=== PATIENT | male | born 1970 | race Caucasian/White ===

== ENCOUNTER 2022-04-17 08:36 | Emergency (ER) | payer OTHER ==
[2022-04-17] MEDS ORDERED: Sodium Chloride 0.9% 1000 ML 1,000 ML IV STA ×2 (09:34→13:20)
[2022-04-17 09:38] LABS: Absolute Neutrophil Ct (ANC) 7.86 x10^3/uL (1.4-6.9); Basophil (Absolute #) 0.09 x10^3/uL (0-0.4); Eosinophil % 0.5 % (0.00-5.0); Eosinophil (Absolute #) 0.05 x10^3/uL (0-0.5); Hematocrit 35.8 % (42-50); Hemoglobin 12.2 g/dL (12.5-18.0); Lymphocyte (Absolute #) 0.89 x10^3/uL (1.0-4.6); Lymphocytes % 9.3 % (24.0-44.0); Mean Cell Volume 90.6 fL (78-100); Mean Corpuscular Hemoglobin 30.9 pg (26-32); Mean Corpuscular Hgb Concent. 34.1 g/dL (32-36); Mean Platelet Volume 8.1 fL (7.5-11.0); Monocyte (Absolute #) 0.65 x10^3/uL (0.0-1.3); Monocytes % 6.8 % (0.0-12.0); Platelet Count 431 x10^3/uL (150-450); Red Blood Count 3.95 x10^6/uL (4.1-5.6); Red Cell Distribution Width 13.4 % (11.5-14.0); White Blood Count 9.6 x10^3/uL (4.0-10.5)
--- NOTE | 2022-04-17 09:45 | XRAY ---
Indication: Fever. History bladder cancer. Comparison: October 29, 2021 Portable chest demonstrates new hazy right base air space disease without consolidation/large effusion. Remaining heart and left lung unremarkable. Bony thorax intact again with minimal degenerative changes, old bilateral rib fractures, and partially visualized lower cervical fusion hardware.
[2022-04-17] MEDS ORDERED: PIPERACILLIN/TAZOBACTAM 3.375 GM in Sodium Chloride 100ML MINI-BAG PLUS 100 ML IV ONE (09:48)
[2022-04-17] MEDS ORDERED: Sodium Chloride 0.9% 1000 ML 1,000 ML ONE ×2 (09:51→13:29)
[2022-04-17 09:53] LABS: ALBUMIN 3.8 g/dL (3.5-5.0); ALKALINE PHOSPHATASE 56 U/L (38-126); ANION GAP 11.1 MEQ/L (5-15); BLOOD UREA NITROGEN 9 mg/dL (9-20); CHLORIDE 99 mmol/L (98-107); Calcium 8.7 mg/dL (8.4-10.2); Carbon Dioxide 25 mmol/L (22-30); Creatinine 1 0.82 mg/dL (0.66-1.25); EST GLOMERULAR FILTRATION RATE > 60.0 ML/MIN; Glucose 118 mg/dL (74-106); Potassium 3.5 mmol/L (3.5-5.1); SGOT/AST 23 U/L (17-59); SGPT/ALT 17 U/L (0-50); SODIUM 131 mmol/L (137-145)
[2022-04-17] MEDS ORDERED: SUBLIMAZE 100 MCG/2 ML IV ONE (10:11)
[2022-04-17] MEDS ORDERED: Zofran 4 MG/2 ML VIAL IV ONE (10:11)
[2022-04-17 10:13] LABS: INFLUENZA A NEGATIVE (NEGATIVE); INFLUENZA B NEGATIVE (NEGATIVE); RESPIRATORY SYNCTIAL VIRUS NEGATIVE (Negative); SARS-CoV-2 Xpert Express NEGATIVE (NEGATIVE)
[2022-04-17] MEDS ORDERED: Sodium Chloride 100ML MINI-BAG PLUS 100 ML IV ONE (10:20)
[2022-04-17] MEDS ORDERED: Zofran 4 MG/2 ML VIAL ONE (10:20)
[2022-04-17] MEDS ORDERED: PIPERACILLIN/TAZOBACTAM IV ONE (10:20)
[2022-04-17] MEDS ORDERED: SUBLIMAZE 100 MCG/2 ML ONE (10:20)
--- NOTE | 2022-04-17 10:52 | ERPHSYRPT ---
- History of Present Illness Source: patient, other () Exam Limitations: no limitations Patient Subjective Stated Complaint: cough, shortness of breath, body aches, fatigue Triage Nursing Assessment: patient appears short of breath with activity. brought back in wheelchair per staff. able to transfer from wheelchair to bed with no difficulty. moist cough. patient states that he just aches all over. oxygen sat 95 percent on room air. Patient has right urostomy, but says he feels the "urge to urinate". midline line healing incision with kelvin intact. Skin warm and dry, slight redness. Physician History: 52 yo wm s/o cystectomy/prostatectomy on 04/01 in [facility] presents w lethargy/cough/fever/abdominal pain. Pt states that his cough is non-productive. Pain is around his mid-line lap incision which still has kelvin in it. Discharge from incision is denied. He has a urostomy/bag in place. He states that his pain is mod-severe around his incision. Dyspnea/chest pain/coryza/diarrhea/melena/hematochezia all denied. Timing/Duration: yesterday Severity: moderate Modifying Factors: Improves With: nothing Associated Symptoms: abdominal pain, cough, chills, fever, loss of appetite, malaise, weakness, No nausea, No vomiting, No shortness of breath, No heartburn, No diaphoresis, No chest pain, No headaches, No rash, No syncope, No seizure Allergies/Adverse Reactions: morphine Allergy (Intermediate, Verified 07/11/16 07:47) anger Home Medications: Levothyroxine Sodium [Synthroid] 137 mcg PO DAILY 09/19/15 [History] Venlafaxine HCl [Effexor] 150 mg PO DAILY 09/19/15 [History] Lisinopril 10 mg [Zestril 10 MG] 20 mg PO DAILY 07/11/16 [History] Amlodipine Besylate 5 mg [Norvasc 5 mg] 5 mg PO DAILY 04/17/22 [History] Docusate Sodium [Colace] 100 mg PO DAILY 04/17/22 [History] Enoxaparin Sodium [Lovenox] 40 mg SQ DAILY 04/17/22 [History] Hydrocodone/Acetaminophen [Hydrocodone-Acetamin 10-325 mg] 1 tablet PO Q4H PRN PRN 04/17/22 [History] Sulfamethoxazole/Trimethoprim [Sulfamethoxazole-Tmp Ds Tablet] 1 tab PO DAILY 04/17/22 [History] hydroCHLOROthiazide [Hydrochlorothiazide] 12.5 mg PO DAILY 04/17/22 [History] methocarbamoL [Methocarbamol] 500 mg PO DAILY 04/17/22 [History] Hx Tetanus, Diphtheria Vaccination/Date Given: Yes Hx Influenza Vaccination/Date Given: Yes Hx Pneumococcal Vaccination/Date Given: No Immunizations Up to Date: Yes Travel Risk - International Travel Have you traveled outside of the country in past 3 weeks: No - Coronavirus Screening Symptoms: Fever, Cough: New Onset, Shortness of Breath, Headaches/Body Aches/Fatigue Close contact with a COVID-19 positive Pt in past 14-21 Days: No - Vaccine Status Have you recieved a Covid-19 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: 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: [employer] - Vaccination Dates Date of 2cond Vaccination (if applicable): September 2020 - Review of Systems Constitutional: No Symptoms, Fever, Chills, Fatigue, Malaise Eyes: No Symptoms Ears, Nose, & Throat: No Symptoms Respiratory: No Symptoms, Cough Cardiac: No Symptoms Abdominal/Gastrointestinal: No Symptoms, Abdominal Pain Genitourinary Symptoms: No Symptoms Musculoskeletal: No Symptoms Skin: No Symptoms Neurological: No Symptoms, Lethargy Psychological: No Symptoms Endocrine: No Symptoms Hematologic/Lymphatic: No Symptoms Immunological/Allergic: No Symptoms - Past Medical History Pertinent Past Medical History: Yes Neurological History: No Pertinent History ENT History: No Pertinent History Cardiac History: Hypertension Respiratory History: COPD Endocrine Medical History: Hypothyroidism Musculoskeletal History: Arthritis, Fractures GI Medical History: GERD History: Bladder Cancer Psycho-Social History: Anxiety, Depression Male Reproductive Disorders: Prostate Cancer Other Medical History: L KNEE MULTIPLE SURGERIES, R KNEE SURGERY; BILATERAL SHOULDER LABRAL REPAIRS. non hodgkins lymphoma. melanoma left ear - Past Surgical History Past Surgical History: Yes Neuro Surgical History: No Pertinent History Cardiac: Cardiac Catheterization Respiratory: No Pertinent History Gastrointestinal: No Pertinent History, Other Genitourinary: No Pertinent History Musculoskeletal: Orthopedic Surgery Male Surgical History: No Pertinent History Other Surgical History: bladder removed, prostate removed, and 19 lymph nodes removed 04/01 - Social History Smoking Status: Current every day smoker How long have you smoked: 25 years Exposure to second hand smoke: No Alcohol Use: Socially Drug Use: none Patient Lives Alone: Yes Significant Family History: no pertinent family hx - Nursing Vital Signs Nursing Vital Signs: Initial Vital Signs Temperature 98.8 F 04/17/22 08:36 Pulse Rate 82 04/17/22 08:36 Respiratory Rate 20 04/17/22 08:36 Blood Pressure 113/78 04/17/22 08:36 O2 Sat by Pulse Oximetry 95 04/17/22 08:36 Pain Scale Pain Intensity 5 WNL - Physical Exam General Appearance: no apparent distress (Ill appearing but in NAD) Eye Exam: PERRL/EOMI, eyes nml inspection Ears, Nose, Throat Exam: normal ENT inspection, TMs normal, pharynx normal, moist mucous membranes Neck Exam: normal inspection, non-tender, supple, full range of motion, No meningismus, No mass, No Brudzinski, No Kernig's Cardiovascular Exam: regular rate/rhythm, capillary refill <2 sec, No murmur Gastrointestinal/Abdomen Exam: soft (Urostomy/Mid-line lap incision w kelvin/No discharge/No erythema/Good BS/diffuse TTP wo guarding or rebound) Back Exam: normal inspection, normal range of motion, No CVA tenderness, No vertebral tenderness Extremity Exam: normal inspection, normal range of motion, pelvis stable Neurologic Exam: alert, oriented x 3, cooperative, 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, normal mood/affect Skin Exam: normal color, warm, dry Lymphatic Exam: No adenopathy SpO2 Interpretation: normal SpO2: 95 O2 Delivery: Room Air - Course Nursing assessment & vital signs reviewed: Yes - Radiology Exams Chest X-ray Interpretation: Discussed w/ radiologist (RLL infiltrate) - CT Exams Chest CT Interpretation: Discussed w/radiologist (Bibasilar pulmonary fibrosis/scarring) Abdomen/Pelvis CT Interpretation: Discussed w/radiologist (Small pelvic free fluid/post- operative seroma-hematoma) Ordered Tests: Active Orders 24 hr Category Date Time Status EKG-ER Only STAT Care 04/17/22 09:08 Completed IV Insertion STAT Care 04/17/22 09:08 Completed ABDOMEN AND PELVIS W CONTRAST [CT] Stat Exams 04/17/22 10:05 Completed CHEST 1 VIEW (PORTABLE) Stat Exams 04/17/22 09:09 Completed CHEST WITH CONTRAST [CT] Stat Exams 04/17/22 10:04 Completed BLOOD CULTURE Stat Lab 04/17/22 09:32 Received CBC W DIFF Stat Lab 04/17/22 09:32 Completed CMP Stat Lab 04/17/22 09:32 Completed CULTURE,URINE Stat Lab 04/17/22 11:07 Received Lactic Acid Stat Lab 04/17/22 09:44 Completed POCT GLUCOSE Stat Lab 04/17/22 08:58 Completed TROPONIN Q4H Lab 04/17/22 09:32 Completed TROPONIN Q4H Lab 04/17/22 13:04 Completed UA W/RFX CULTURE Stat Lab 04/17/22 11:07 Completed Medication Summary Discontinued Medications Generic Name Dose Route Start Last Admin Trade Name Bladimirq PRN Reason Stop Dose Admin Fentanyl Citrate 50 mcg 04/17/22 10:11 04/17/22 10:23 Fentanyl Citrate 100 Mcg/2 Ml* Vial IV 04/17/22 10:12 50 mcg STAT ONE Administration Fentanyl Citrate Confirm 04/17/22 10:20 Fentanyl Citrate 100 Mcg/2 Ml* Vial Administered 04/17/22 10:21 Dose 100 mcg .ROUTE .STK-MED ONE Hydromorphone HCl 1 mg 04/17/22 10:54 04/17/22 10:56 Hydromorphone 1 Mg/1ml Inj 1 Mg/Ml Syringe IV 04/17/22 10:55 1 mg STAT ONE Administration Hydromorphone HCl Confirm 04/17/22 10:55 Hydromorphone 1 Mg/1ml Inj 1 Mg/Ml Syringe Administered 04/17/22 10:56 Dose 1 mg .ROUTE .STK-MED ONE Hydromorphone HCl 1 mg 04/17/22 13:20 04/17/22 13:31 Hydromorphone 1 Mg/1ml Inj 1 Mg/Ml Syringe IV 04/17/22 13:21 1 mg STAT ONE Administration Hydromorphone HCl Confirm 04/17/22 13:29 Hydromorphone 1 Mg/1ml Inj 1 Mg/Ml Syringe Administered 04/17/22 13:30 Dose 1 mg .ROUTE .STK-MED ONE Sodium Chloride 1,000 mls @ 999 mls/hr 04/17/22 09:34 04/17/22 10:59 Sodium Chloride 0.9% 1000 Ml IV 04/17/22 10:34 Infused .Q1H1M STA Infusion Piperacillin Sod/Tazobactam 100 mls @ 200 mls/hr 04/17/22 09:48 04/17/22 10:54 Sod 3.375 gm/ Sodium Chloride IV 04/17/22 10:17 200 mls/hr STAT ONE Administration Sodium Chloride Confirm 04/17/22 09:51 Sodium Chloride 0.9% 1000 Ml Administered 04/17/22 09:52 Dose 1,000 mls @ ud .ROUTE .STK-MED ONE Sodium Chloride Confirm 04/17/22 10:20 Sodium Chloride 100ml Mini-Bag Plus Administered 04/17/22 10:21 Dose 100 mls @ ud IV .STK-MED ONE Sodium Chloride 1,000 mls @ 999 mls/hr 04/17/22 13:20 04/17/22 14:33 Sodium Chloride 0.9% 1000 Ml IV 04/17/22 14:20 Infused .Q1H1M STA Infusion Sodium Chloride Confirm 04/17/22 13:29 Sodium Chloride 0.9% 1000 Ml Administered 04/17/22 13:30 Dose 1,000 mls @ ud .ROUTE .STK-MED ONE Ondansetron HCl 4 mg 04/17/22 10:11 04/17/22 10:22 Ondansetron Hcl 4 Mg/2 Ml Vial IV 04/17/22 10:12 4 mg STAT ONE Administration Ondansetron HCl Confirm 04/17/22 10:20 Ondansetron Hcl 4 Mg/2 Ml Vial Administered 04/17/22 10:21 Dose 4 mg .ROUTE .STK-MED ONE Piperacillin Sod/Tazobactam Sod Confirm 04/17/22 10:20 Piperacillin/Tazobactam Sodium 3.375 Gm Vial Administered 04/17/22 10:21 Dose 3.375 gm IV .STK-MED ONE Lab/Rad Data: Laboratory Result Diagrams 04/17/22 09:32 04/17/22 09:32 Laboratory Results 04/17/22 04/17/22 04/17/22 Range/Units 13:04 11:07 09:44 WBC (4.0-10.5) x10^3/uL RBC (4.1-5.6) x10^6/uL Hgb (12.5-18.0) g/dL Hct (42-50) % MCV (78-100) fL MCH (26-32) pg MCHC (32-36) g/dL RDW (11.5-14.0) % Plt Count (150-450) x10^3/uL MPV (7.5-11.0) fL Gran % (36.0-66.0) % Immature Gran % (Auto) (0.00-0.4) % Nucleat RBC Rel Count (0.00-0.1) % Eos # (Auto) (0-0.5) x10^3/uL Immature Gran # (Auto) (0.00-0.03) x10^3u/L Absolute Lymphs (auto) (1.0-4.6) x10^3/uL Absolute Monos (auto) (0.0-1.3) x10^3/uL Absolute Nucleated RBC (0.00-0.01) x10^3u/L Lymphocytes % (24.0-44.0) % Monocytes % (0.0-12.0) % Eosinophils % (0.00-5.0) % Basophils % (0.0-0.4) % Absolute Granulocytes (1.4-6.9) x10^3/uL Basophils # (0-0.4) x10^3/uL Sodium (137-145) mmol/L Potassium (3.5-5.1) mmol/L Chloride (98-107) mmol/L Carbon Dioxide (22-30) mmol/L Anion Gap (5-15) MEQ/L BUN (9-20) mg/dL Creatinine (0.66-1.25) mg/dL Estimated GFR ML/MIN Glucose (74-106) mg/dL POC Glucometer (74 to 106) mg/dL Lactic Acid 0.9 (0.4-2.0) Calcium (8.4-10.2) mg/dL Total Bilirubin (0.2-1.3) mg/dL AST (17-59) U/L ALT (0-50) U/L Alkaline Phosphatase (38-126) U/L Troponin I < 0.012 (0.000-0.034) ng/mL Serum Total Protein (6.3-8.2) g/dL Albumin (3.5-5.0) g/dL Urinalys Dipstick Clnc MAIN LAB Urine Color YELLOW (YELLOW) Urine Appearance CLEAR (CLEAR) Urine pH 8.0 (5-6) Ur Specific [place] 1.015 (1.005-1.025) POC Urine Protein Conf 100 (Negative) Urine Ketones NEGATIVE (NEGATIVE) Urine Nitrite POSITIVE (NEGATIVE) Urine Bilirubin NEGATIVE (NEGATIVE) Urine Urobilinogen 0.2 (0-1) mg/dL Urine Leukocytes TRACE (NEGATIVE) Urine WBC (Auto) 16-25 (0-5) /HPF Urine RBC (Auto) 51-100 (0-2) /HPF U Epithel Cells (Auto) NONE (FEW) /HPF Urine Bacteria (Auto) RARE (NEGATIVE) /HPF Urine RBC MODERATE (0-5) Edmund/ul Urine Mucus (Auto) SLIGHT (NEGATIVE) /HPF Ur Culture Indicated? YES Urine Glucose NEGATIVE (NEGATIVE) mg/dL Influenza Type A Ag (NEGATIVE) Influenza Type B Ag (NEGATIVE) RSV (PCR) (Negative) SARS-CoV-2 (PCR) (NEGATIVE) 04/17/22 04/17/22 04/17/22 Range/Units 09:32 09:32 09:32 WBC (4.0-10.5) x10^3/uL RBC (4.1-5.6) x10^6/uL Hgb (12.5-18.0) g/dL Hct (42-50) % MCV (78-100) fL MCH (26-32) pg MCHC (32-36) g/dL RDW (11.5-14.0) % Plt Count (150-450) x10^3/uL MPV (7.5-11.0) fL Gran % (36.0-66.0) % Immature Gran % (Auto) (0.00-0.4) % Nucleat RBC Rel Count (0.00-0.1) % Eos # (Auto) (0-0.5) x10^3/uL Immature Gran # (Auto) (0.00-0.03) x10^3u/L Absolute Lymphs (auto) (1.0-4.6) x10^3/uL Absolute Monos (auto) (0.0-1.3) x10^3/uL Absolute Nucleated RBC (0.00-0.01) x10^3u/L Lymphocytes % (24.0-44.0) % Monocytes % (0.0-12.0) % Eosinophils % (0.00-5.0) % Basophils % (0.0-0.4) % Absolute Granulocytes (1.4-6.9) x10^3/uL Basophils # (0-0.4) x10^3/uL Sodium 131 L (137-145) mmol/L Potassium 3.5 (3.5-5.1) mmol/L Chloride 99 (98-107) mmol/L Carbon Dioxide 25 (22-30) mmol/L Anion Gap 11.1 (5-15) MEQ/L BUN 9 (9-20) mg/dL Creatinine 0.82 (0.66-1.25) mg/dL Estimated GFR > 60.0 ML/MIN Glucose 118 H (74-106) mg/dL POC Glucometer (74 to 106) mg/dL Lactic Acid (0.4-2.0) Calcium 8.7 (8.4-10.2) mg/dL Total Bilirubin 0.40 (0.2-1.3) mg/dL AST 23 (17-59) U/L ALT 17 (0-50) U/L Alkaline Phosphatase 56 (38-126) U/L Troponin I < 0.012 (0.000-0.034) ng/mL Serum Total Protein 7.0 (6.3-8.2) g/dL Albumin 3.8 (3.5-5.0) g/dL Urinalys Dipstick Clnc Urine Color (YELLOW) Urine Appearance (CLEAR) Urine pH (5-6) Ur Specific [place] (1.005-1.025) POC Urine Protein Conf (Negative) Urine Ketones (NEGATIVE) Urine Nitrite (NEGATIVE) Urine Bilirubin (NEGATIVE) Urine Urobilinogen (0-1) mg/dL Urine Leukocytes (NEGATIVE) Urine WBC (Auto) (0-5) /HPF Urine RBC (Auto) (0-2) /HPF U Epithel Cells (Auto) (FEW) /HPF Urine Bacteria (Auto) (NEGATIVE) /HPF Urine RBC (0-5) Edmund/ul Urine Mucus (Auto) (NEGATIVE) /HPF Ur Culture Indicated? Urine Glucose (NEGATIVE) mg/dL Influenza Type A Ag NEGATIVE (NEGATIVE) Influenza Type B Ag NEGATIVE (NEGATIVE) RSV (PCR) NEGATIVE (Negative) SARS-CoV-2 (PCR) NEGATIVE (NEGATIVE) 04/17/22 04/17/22 Range/Units 09:32 08:58 WBC 9.6 (4.0-10.5) x10^3/uL RBC 3.95 L (4.1-5.6) x10^6/uL Hgb 12.2 L (12.5-18.0) g/dL Hct 35.8 L (42-50) % MCV 90.6 (78-100) fL MCH 30.9 (26-32) pg MCHC 34.1 (32-36) g/dL RDW 13.4 (11.5-14.0) % Plt Count 431 (150-450) x10^3/uL MPV 8.1 (7.5-11.0) fL Gran % 82.0 H (36.0-66.0) % Immature Gran % (Auto) 0.5 H (0.00-0.4) % Nucleat RBC Rel Count 0.0 (0.00-0.1) % Eos # (Auto) 0.05 (0-0.5) x10^3/uL Immature Gran # (Auto) 0.05 H (0.00-0.03) x10^3u/L Absolute Lymphs (auto) 0.89 L (1.0-4.6) x10^3/uL Absolute Monos (auto) 0.65 (0.0-1.3) x10^3/uL Absolute Nucleated RBC 0.00 (0.00-0.01) x10^3u/L Lymphocytes % 9.3 L (24.0-44.0) % Monocytes % 6.8 (0.0-12.0) % Eosinophils % 0.5 (0.00-5.0) % Basophils % 0.9 (0.0-0.4) % Absolute Granulocytes 7.86 H (1.4-6.9) x10^3/uL Basophils # 0.09 (0-0.4) x10^3/uL Sodium (137-145) mmol/L Potassium (3.5-5.1) mmol/L Chloride (98-107) mmol/L Carbon Dioxide (22-30) mmol/L Anion Gap (5-15) MEQ/L BUN (9-20) mg/dL Creatinine (0.66-1.25) mg/dL Estimated GFR ML/MIN Glucose (74-106) mg/dL POC Glucometer 123 H (74 to 106) mg/dL Lactic Acid (0.4-2.0) Calcium (8.4-10.2) mg/dL Total Bilirubin (0.2-1.3) mg/dL AST (17-59) U/L ALT (0-50) U/L Alkaline Phosphatase (38-126) U/L Troponin I (0.000-0.034) ng/mL Serum Total Protein (6.3-8.2) g/dL Albumin (3.5-5.0) g/dL Urinalys Dipstick Clnc Urine Color (YELLOW) Urine Appearance (CLEAR) Urine pH (5-6) Ur Specific [place] (1.005-1.025) POC Urine Protein Conf (Negative) Urine Ketones (NEGATIVE) Urine Nitrite (NEGATIVE) Urine Bilirubin (NEGATIVE) Urine Urobilinogen (0-1) mg/dL Urine Leukocytes (NEGATIVE) Urine WBC (Auto) (0-5) /HPF Urine RBC (Auto) (0-2) /HPF U Epithel Cells (Auto) (FEW) /HPF Urine Bacteria (Auto) (NEGATIVE) /HPF Urine RBC (0-5) Edmund/ul Urine Mucus (Auto) (NEGATIVE) /HPF Ur Culture Indicated? Urine Glucose (NEGATIVE) mg/dL Influenza Type A Ag (NEGATIVE) Influenza Type B Ag (NEGATIVE) RSV (PCR) (Negative) SARS-CoV-2 (PCR) (NEGATIVE) - Progress Progress: improved Progress Note: 04/17/22 14:25 Blood cultures x2 Zosyn 3.375mg IV 50mcg IV [id number] IV zofran wo improvement in abdominal pain 1mg IV Dilaudid w improvement in pain 1L NS bolus x2 1mg IV dilaudid Spoke w Dr. Cash,Wants to send home. Pt has no evidence for sepsis. CT chest wo pneumonia/CT ab-pelvis wo evidence of acute abnormality. UA w small amount of blood/WBC's which probably WNL s/p urostomy. Pt on Bactrim at this time. Dr. Cash wants to continue with Bactrim. Unable to reach pt's Urologist. 04/17/22 20:11 Discussed with : Radha Counseled pt/family regarding: lab results, diagnosis, need for follow-up, rad results - Departure Departure Disposition: Home Clinical Impression: Post-op pain, UTI (urinary tract infection) Condition: Stable Critical Care Time: No Referrals: JULITO CASH MD [Primary Care Provider] - Follow up/PCP as directed Instructions: Cough, Adult (DC), Postoperative Pain (DC) Additional Instructions: Continue with Bactrim Follow up with your urologist and/or Dr. Cash on Wednesday Return to ER for increasing pain or persistent temperature greater than 100.5
[2022-04-17] MEDS ORDERED: Hydromorphone 1 mg/ml Injection IV ONE ×2 (10:54→13:20)
[2022-04-17] MEDS ORDERED: Hydromorphone 1 mg/ml Injection ONE ×2 (10:55→13:29)
--- NOTE | 2022-04-17 11:05 | XRAY ---
Indication: Fever and cough. Multiple contiguous axial images obtained through the chest using 80 cc Isovue 370 contrast. Comparison: September 19, 2015 Lungs again demonstrates minimal bibasilar fibrosis/scarring. No suspicious pulmonary mass, infiltrate, consolidation, effusion, or pneumothorax. Heart not enlarged. Aorta minimally arteriosclerotic without aneurysm/dissection. No pathologic mediastinal/hilar lymphadenopathy. Bony thorax intact with mild degenerative changes throughout the spine greatest at T7-T8. Also new findings multiple old bilateral rib fractures and partially visualized cervical thoracic junction fusion hardware. CT abdomen/pelvis reported separately. Impression: 1. Again bibasilar pulmonary fibrosis/scarring. No new/acute cardiopulmonary abnormalities. 2. Incidental chronic bony findings.
--- NOTE | 2022-04-17 11:15 | XRAY ---
Indication: Fever and pain following prostate/bladder surgery 2 weeks ago. Multiple contiguous axial images obtained through the abdomen and pelvis using 80 cc Isovue 370 contrast. Comparison: April 19, 2014 CT chest reported separately. New L4-S1 posterior fusion hardware produces extreme beam artifact limiting these levels. There has been prostatectomy and cystectomy with anterior percutaneous bilateral ureteral stent catheters exiting right mid abdomen. Small pelvic free fluid but no walled off fluid collection or free air. Intact midline cutaneous kelvin with tiny incisional fluid collection inferiorly measuring 1.6 x 1.6 x 6.3 cm presumed hematoma/seroma. No subcutaneous emphysema. Noncontrasted stomach and bowel loops nonobstructed. Mild sigmoid diverticulosis without diverticulitis. Gallbladder partially contracted without gallstones. 1.4 cm left upper renal cortical cyst. Remaining liver, gallbladder, pancreas, spleen, adrenal glands, and kidneys are unremarkable. Minimal aortoiliac calcifications. No AAA or pathologic retroperitoneal lymphadenopathy. Remaining osseous structures intact again with L5-S1 degenerative changes and grade 1-2 L5 anterolisthesis. Impression: 1. New beam artifact from L4-S1 posterior fusion hardware. 2. Status post prostatectomy and cystectomy with bilateral percutaneous ureteral stent catheters. 3. Small pelvic free fluid and abdominal wall fluid collection presumed postoperative hematoma/seroma. No walled off fluid collection or features for abscess. 4. Incidental sigmoid diverticulosis and left renal cyst.
[2022-04-17 11:49] LABS: Bacteria RARE /HPF (NEGATIVE); Mucus SLIGHT /HPF (NEGATIVE); RBC 51-100 /HPF (0-2)
[2022-04-17 11:52] LABS: Appearance CLEAR (CLEAR); Bilirubin NEGATIVE (NEGATIVE); Glucose NEGATIVE (NEGATIVE); Ketones NEGATIVE (NEGATIVE); Specific Gravity 1.015 (1.005-1.025)
[2022-04-17 11:53] LABS: Nitrite POSITIVE (NEGATIVE); Protein,Urine Dip 100 (Negative); RBC MODERATE Ery/ul (0-5); Urine Cultured Indicated? YES; Urobilinogen 0.2 mg/dL (0-1)
[2022-04-17 11:55] LABS: Dipstick done @ ? MAIN LAB
[2022-04-17 14:31] VITALS: O2SAT 95
[2022-04-17 14:44] VITALS: BP 124/75; PULSE 80
== END 2022-04-17 14:51 | disposition home or self-care (01) ==
LOC: ED 08:36
DX: G89.18 Other acute postprocedural pain (principal); N39.0 Urinary tract infection, site not specified; R05.9 Cough, unspecified; R53.83 Other fatigue; R50.9 Fever, unspecified; I10 Essential (primary) hypertension; J44.9 Chronic obstructive pulmonary disease, unspecified; Z72.0 Tobacco use; Z79.891 Long term (current) use of opiate analgesic; Z79.899 Other long term (current) drug therapy
CPT/HCPCS: 0241U; 36000; 36415; 71045; 71260; 74177; 80053; 81015; 82947; 83605; 84484; 85025; 87040; 87077; 87086; 87186; 93005; 96360; 96374; 96375; 96376; 99285; J1170; J2405; J3010

== ENCOUNTER 2022-06-10 15:28 | Emergency (ER) | payer OTHER ==
--- NOTE | 2022-06-10 15:35 | ERPHSYRPT ---
- History of Present Illness Time Seen by Provider: 06/10/22 15:35 Historian: patient Exam Limitations: no limitations Physician History: This is a 52-year-old white male who underwent a cystectomy with placement of a urinary ileal conduit right lower quadrant on April 01, 2022 secondary to urinary bladder cancer. Patient states that in the peristomal area there is been tenderness present since surgery. However, in the last 3 days there is been worsening pain with a "knot" present patient stated that he spoke to his urologist 2 to 3 days ago and he was told to come into the emergency department for evaluation. However he did not. He was looking on the Internet and became concerned that there may be strangulation of the bowel so he came into the emergency room today. He is out of [place] pain medicine. He cannot take morphine per his report. He has had Dilaudid in the past which he tolerated well and it helped him. Patient has a history of hypertension, hypothyroidism and anxiety issues. Patient does see a pain specialist, Dr. Tyson. Timing/Duration: day(s) (3), worse Activities at Onset: none Quality: sharpness Abdominal Pain Onset Location: other (Right lower quadrant upper portion of urostomy) Pain Radiation: no radiation Severity of Pain-Max: moderate Severity of Pain-Current: moderate Modifying Factors: Improves With: nothing Associated Symptoms: denies symptoms Previous symptoms: no prior history, no recent treatment Allergies/Adverse Reactions: morphine Allergy (Intermediate, Verified 06/10/22 15:55) anger Home Medications: Levothyroxine Sodium [Synthroid] 137 mcg PO DAILY 09/19/15 [History] Venlafaxine HCl [Effexor] 150 mg PO DAILY 09/19/15 [History] Lisinopril 10 mg [Zestril 10 MG] 20 mg PO DAILY 07/11/16 [History] Amlodipine Besylate 5 mg [Norvasc 5 mg] 5 mg PO DAILY 04/17/22 [History] Docusate Sodium [Colace] 100 mg PO DAILY 04/17/22 [History] Enoxaparin Sodium [Lovenox] 40 mg SQ DAILY 04/17/22 [History] Hydrocodone/Acetaminophen [Hydrocodone-Acetamin 10-325 mg] 1 tablet PO Q4H PRN PRN 04/17/22 [History] Sulfamethoxazole/Trimethoprim [Sulfamethoxazole-Tmp Ds Tablet] 1 tab PO DAILY 04/17/22 [History] hydroCHLOROthiazide [Hydrochlorothiazide] 12.5 mg PO DAILY 04/17/22 [History] methocarbamoL [Methocarbamol] 500 mg PO DAILY 04/17/22 [History] Hx Tetanus, Diphtheria Vaccination/Date Given: Yes Hx Influenza Vaccination/Date Given: Yes Hx Pneumococcal Vaccination/Date Given: No Travel Risk - International Travel Have you traveled outside of the country in past 3 weeks: No - Coronavirus Screening Are you exhibiting any of the following symptoms?: No Close contact with a COVID-19 positive Pt in past 14-21 Days: No - Vaccine Status Have you recieved a Covid-19 vaccination: Yes 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[employer] - Vaccination Dates Date of 2cond Vaccination (if applicable): September 2020 - Review of Systems Constitutional: No Symptoms Eyes: No Symptoms Ears, Nose, & Throat: No Symptoms Respiratory: No Symptoms Cardiac: No Symptoms Abdominal/Gastrointestinal: Abdominal Pain (In the area of the right lower quadrant urostomy) Genitourinary Symptoms: No Symptoms Musculoskeletal: No Symptoms Skin: No Symptoms Neurological: No Symptoms Psychological: No Symptoms Endocrine: No Symptoms Hematologic/Lymphatic: No Symptoms Immunological/Allergic: No Symptoms - Past Medical History Pertinent Past Medical History: Yes Neurological History: No Pertinent History ENT History: No Pertinent History Cardiac History: Hypertension Respiratory History: COPD Endocrine Medical History: Hypothyroidism Musculoskeletal History: Arthritis, Fractures GI Medical History: GERD History: Bladder Cancer Psycho-Social History: Anxiety, Depression Male Reproductive Disorders: Prostate Cancer Other Medical History: L KNEE MULTIPLE SURGERIES, R KNEE SURGERY; BILATERAL SHOULDER LABRAL REPAIRS. non hodgkins lymphoma. melanoma left ear - Past Surgical History Past Surgical History: Yes Neuro Surgical History: No Pertinent History Cardiac: Cardiac Catheterization Respiratory: No Pertinent History Gastrointestinal: No Pertinent History, Other Genitourinary: No Pertinent History Musculoskeletal: Orthopedic Surgery Male Surgical History: No Pertinent History Other Surgical History: bladder removed, prostate removed, and 19 lymph nodes removed 04/01 - Social History Smoking Status: Current every day smoker How long have you smoked: 25 years Exposure to second hand smoke: No Alcohol Use: Socially Drug Use: none Patient Lives Alone: Yes Significant Family History: no pertinent family hx - Nursing Vital Signs Nursing Vital Signs: Initial Vital Signs Temperature 98.1 F 06/10/22 16:07 Pulse Rate 104 H 06/10/22 16:07 Respiratory Rate 20 06/10/22 16:07 Blood Pressure 126/103 06/10/22 16:07 O2 Sat by Pulse Oximetry 98 06/10/22 16:07 Pain Scale Pain Intensity 6 - Physical Exam General Appearance: mild distress, alert, anxiety Eye Exam: PERRL/EOMI, eyes nml inspection Ears, Nose, Throat Exam: normal ENT inspection, moist mucous membranes Neck Exam: normal inspection, non-tender, supple, full range of motion Respiratory Exam: normal breath sounds, lungs clear, airway intact, No chest tenderness, No respiratory distress Cardiovascular Exam: regular rate/rhythm, normal heart sounds, normal peripheral pulses Gastrointestinal/Abdomen Exam: soft, normal bowel sounds, tenderness (Around the upper portion of the urostomy appliance), No guarding, No rebound Rectal Exam: not done Back Exam: normal inspection, normal range of motion, No CVA tenderness, No vertebral tenderness Extremity Exam: normal inspection, normal range of motion, pelvis stable Neurologic Exam: alert, oriented x 3, cooperative, supervisor prep II-XII nml as tested, normal mood/affect, nml cerebellar function, nml station & gait, sensation nml Skin Exam: normal color, warm, dry Lymphatic Exam: No adenopathy SpO2 Interpretation: normal O2 Delivery: Room Air - Course Nursing assessment & vital signs reviewed: Yes Ordered Tests: Active Orders 24 hr Category Date Time Status ABDOMEN AND PELVIS W/0 CONTRAS [CT] Stat Exams 06/10/22 17:31 Taken Medication Summary Discontinued Medications Generic Name Dose Route Start Last Admin Trade Name Sheeba PRN Reason Stop Dose Admin Hydromorphone HCl 1 mg 06/10/22 16:19 06/10/22 16:25 Hydromorphone 1 Mg/1ml Inj 1 Mg/Ml Syringe IM 06/10/22 16:20 1 mg STAT ONE Administration Hydromorphone HCl Confirm 06/10/22 16:23 Hydromorphone 1 Mg/1ml Inj 1 Mg/Ml Syringe Administered 06/10/22 16:24 Dose 1 mg .ROUTE .STK-MED ONE Ondansetron HCl 4 mg 06/10/22 16:20 06/10/22 16:24 Zofran 4 Mg/Udtablet Orally Disintegrating PO 06/10/22 16:21 4 mg STAT ONE Administration Ondansetron HCl Confirm 06/10/22 16:22 Zofran 4 Mg/Udtablet Orally Disintegrating Administered 06/10/22 16:23 Dose 4 mg .ROUTE .STK-MED ONE - Progress Progress: improved, pain not gone completely Progress Note: 06/10/22 18:22 CAT scan of the abdomen pelvis without contrast when compared to the CAT scan of the abdomen and pelvis without contrast dated 04/17/2022, there is no significant change. There is no acute intra-abdominal or intrapelvic pathology or process. There is persistent, unchanged fat-containing parastomal hernia. Counseled pt/family regarding: diagnosis, need for follow-up, rad results - Departure Departure Disposition: Home Clinical Impression: Parastomal hernia of ileal conduit Condition: Stable Critical Care Time: No Referrals: JULITO CASH MD [Primary Care Provider] - Follow up/PCP as directed Additional Instructions: Take medication as prescribed. Call your urologist tomorrow and obtain further instructions. Prescriptions: Hydrocodone/Acetaminophen [Hydrocodone-Acetamin 10-325 mg] 1 each PO Q8H PRN #6 tablet MDD 3 PRN Reason: Moderate To Severe Pain
[2022-06-10] MEDS ORDERED: Hydromorphone 1 mg/ml Injection IM ONE (16:19)
[2022-06-10] MEDS ORDERED: ZOFRAN ODT 4 MG PO ONE (16:20)
[2022-06-10] MEDS ORDERED: ZOFRAN ODT 4 MG ONE (16:22)
[2022-06-10] MEDS ORDERED: Hydromorphone 1 mg/ml Injection ONE (16:23)
[2022-06-10 18:04] VITALS: BP 156/99; PULSE 92; O2SAT 95
== END 2022-06-10 18:33 | disposition home or self-care (01) ==
LOC: ED 15:28
DX: N99.523 Herniation of incontinent stoma of urinary tract (principal); R10.31 Right lower quadrant pain; I10 Essential (primary) hypertension; Z79.891 Long term (current) use of opiate analgesic; Z72.0 Tobacco use
CPT/HCPCS: 74176; 96372; 99283; J1170; Q0162

== ENCOUNTER 2023-01-14 10:31 | Emergency (ER) | payer OTHER ==
[2023-01-14] MEDS ORDERED: Hydromorphone 1 mg/ml Injection IV ONE ×4 (10:43→15:24)
[2023-01-14] MEDS ORDERED: Sodium Chloride 0.9% 1000 ML 1,000 ML IV SCH (10:45)
--- NOTE | 2023-01-14 10:50 | ERPHSYRPT ---
- History of Present Illness Time Seen by Provider: 01/14/23 10:47 Source: patient Physician History: Patient is a 52-year-old male with a history of bladder cancer status post resection in March with a urinary stoma and bag placed at that same time presents to our ED with acute onset peristomal pain. Pain started just prior to arrival. Patient was outdoors pain was acute in onset. Patient fell over due to the pain and subsequently injured his right elbow. No other injuries reported. Pain described as a ache that is localized. No radiation. Patient reports that he thinks he may have had some hematuria the day prior. No hematuria in the back at the present time. Patient had similar symptoms several months back. Pain eventually resolved at that time. Patient otherwise feels well. He voices no other complaints or concerns at this time. Portions of this note were created with voice recognition technology. There may be grammatical, spelling, punctuation or sound alike errors Timing/Duration: today Severity: moderate Modifying Factors: Improves With: other Associated Symptoms: denies symptoms Allergies/Adverse Reactions: morphine Allergy (Intermediate, Verified 01/14/23 10:36) anger Home Medications: Levothyroxine Sodium [Synthroid] 137 mcg PO DAILY 09/19/15 [History] Venlafaxine HCl [Effexor] 150 mg PO DAILY 09/19/15 [History] Lisinopril 10 mg [Zestril 10 MG] 20 mg PO DAILY 07/11/16 [History] Carvedilol 12.5 mg [Coreg 12.5 mg] 12.5 mg PO BID 01/14/23 [History] Hx Tetanus, Diphtheria Vaccination/Date Given: Yes Hx Influenza Vaccination/Date Given: Yes Hx Pneumococcal Vaccination/Date Given: No Travel Risk - Vaccine Status Have you recieved a Covid-19 vaccination: Yes 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[employer] - Vaccination Dates Date of 2cond Vaccination (if applicable): September 2020 - Review of Systems Constitutional: No Symptoms, No Fever, No Chills Eyes: No Symptoms Ears, Nose, & Throat: No Symptoms Respiratory: No Symptoms, No Cough, No Dyspnea Cardiac: No Symptoms, No Chest Pain, No Edema, No Syncope Abdominal/Gastrointestinal: No Symptoms, No Abdominal Pain, No Nausea, No Vomiting, No Diarrhea Genitourinary Symptoms: No Symptoms, No Dysuria Musculoskeletal: No Symptoms, No Back Pain, No Neck Pain Skin: No Symptoms, No Rash Neurological: No Symptoms, No Dizziness, No Focal Weakness, No Sensory Changes Psychological: No Symptoms Endocrine: No Symptoms Hematologic/Lymphatic: No Symptoms Immunological/Allergic: No Symptoms All Other Systems: Reviewed and Negative - Past Medical History Pertinent Past Medical History: Yes Neurological History: No Pertinent History ENT History: No Pertinent History Cardiac History: Hypertension Respiratory History: COPD Endocrine Medical History: Hypothyroidism Musculoskeletal History: Arthritis, Fractures GI Medical History: GERD History: Bladder Cancer Psycho-Social History: Anxiety, Depression Male Reproductive Disorders: Prostate Cancer Other Medical History: L KNEE MULTIPLE SURGERIES, R KNEE SURGERY; BILATERAL SHOULDER LABRAL REPAIRS. non hodgkins lymphoma. melanoma left ear - Past Surgical History Past Surgical History: Yes Neuro Surgical History: No Pertinent History Cardiac: Cardiac Catheterization Respiratory: No Pertinent History Gastrointestinal: No Pertinent History, Other Genitourinary: No Pertinent History Musculoskeletal: Orthopedic Surgery Male Surgical History: No Pertinent History Other Surgical History: bladder removed, prostate removed, and 19 lymph nodes removed 04/01 - Social History Smoking Status: Current every day smoker How long have you smoked: 25 years Exposure to second hand smoke: No Alcohol Use: Socially Drug Use: none Patient Lives Alone: Yes Significant Family History: no pertinent family hx - Nursing Vital Signs Nursing Vital Signs: Initial Vital Signs Temperature 98.3 F 01/14/23 10:41 Pulse Rate 87 01/14/23 10:41 Respiratory Rate 18 01/14/23 10:41 Blood Pressure 154/100 01/14/23 10:41 O2 Sat by Pulse Oximetry 97 01/14/23 10:41 Pain Scale Pain Intensity 9 - Physical Exam General Appearance: no apparent distress, alert Eye Exam: PERRL/EOMI, eyes nml inspection Ears, Nose, Throat Exam: normal ENT inspection, pharynx normal, moist mucous membranes Neck Exam: normal inspection, non-tender, supple, full range of motion Respiratory Exam: normal breath sounds, lungs clear, No respiratory distress Cardiovascular Exam: regular rate/rhythm, normal heart sounds, normal peripheral pulses Gastrointestinal/Abdomen Exam: soft, normal bowel sounds, No tenderness, No mass Back Exam: normal inspection, normal range of motion, No CVA tenderness, No vertebral tenderness Extremity Exam: normal inspection, normal range of motion, pelvis stable Neurologic Exam: alert, oriented x 3, cooperative, normal mood/affect, sensation nml, No motor deficits Skin Exam: normal color, warm, dry, No rash Lymphatic Exam: No adenopathy SpO2 Interpretation: normal SpO2: 98 O2 Delivery: Room Air - Course Nursing assessment & vital signs reviewed: Yes - CT Exams Abdomen/Pelvis CT Interpretation: Tele-radiologist Report (Urostomy, bilateral hydronephrosis bilateral hydroureter perinephric fluid fecal stasis chronic bony changes) Ordered Tests: Active Orders 24 hr Category Date Time Status IV Insertion STAT Care 01/14/23 10:41 Active ABDOMEN AND PELVIS W/0 CONTRAS [CT] Stat Exams 01/14/23 10:41 Completed ELBOW (MINIMUM 3 VIEWS) Stat Exams 01/14/23 10:51 Completed CBC W DIFF Stat Lab 01/14/23 10:50 Completed CMP Stat Lab 01/14/23 10:50 Completed CULTURE,URINE Stat Lab 01/14/23 10:44 Received CULTURE,URINE Stat Lab 01/14/23 10:54 Received TROPONIN Q4H Lab 01/14/23 10:50 Completed TROPONIN Q4H Lab 01/14/23 14:45 Ordered TROPONIN Q4H Lab 01/14/23 18:45 Ordered UA W/RFX UR CULTURE Stat Lab 01/14/23 10:54 Completed Medication Summary Generic Name Dose Route Start Last Admin Trade Name Freq PRN Reason Stop Dose Admin Sodium Chloride 1,000 mls @ 100 mls/hr 01/14/23 10:45 01/14/23 11:02 Sodium Chloride 0.9% 1000 Ml IV 02/13/23 10:44 100 mls/hr .Q10H NEREYDA Administration Discontinued Medications Generic Name Dose Route Start Last Admin Trade Name Freq PRN Reason Stop Dose Admin Hydromorphone HCl 0.5 mg 01/14/23 10:43 01/14/23 11:03 Hydromorphone 1 Mg/1ml Inj IV 01/14/23 10:44 0.5 mg STAT ONE Administration Hydromorphone HCl Confirm 01/14/23 10:57 Hydromorphone 1 Mg/1ml Inj Administered 01/14/23 10:58 Dose 1 mg .ROUTE .STK-MED ONE Hydromorphone HCl 0.5 mg 01/14/23 11:32 01/14/23 11:37 Hydromorphone 1 Mg/1ml Inj IV 01/14/23 11:33 0.5 mg STAT ONE Administration Hydromorphone HCl Confirm 01/14/23 11:35 Hydromorphone 1 Mg/1ml Inj Administered 01/14/23 11:36 Dose 1 mg .ROUTE .STK-MED ONE Hydromorphone HCl 1 mg 01/14/23 13:17 01/14/23 13:33 Hydromorphone 1 Mg/1ml Inj IV 01/14/23 13:18 1 mg STAT ONE Administration Hydromorphone HCl Confirm 01/14/23 13:30 Hydromorphone 1 Mg/1ml Inj Administered 01/14/23 13:31 Dose 1 mg .ROUTE .STK-MED ONE Ceftriaxone Sodium/Dextrose 1 g in 50 mls @ 100 mls/hr 01/14/23 12:49 01/14/23 13:29 Rocephin 1 Gm-D5w 50 Ml Bag IV 01/14/23 13:18 Infused STAT STA Infusion Ceftriaxone Sodium/Dextrose Confirm 01/14/23 12:53 Rocephin 1 Gm-D5w 50 Ml Bag Administered 01/14/23 12:54 Dose 1 g in 50 mls @ ud IV .STK-MED ONE Lab/Rad Data: Laboratory Result Diagrams 01/14/23 10:50 01/14/23 10:50 Laboratory Results 01/14/23 01/14/23 01/14/23 Range/Units 10:54 10:50 10:50 WBC (4.0-10.5) x10^3/uL RBC (4.1-5.6) x10^6/uL Hgb (12.5-18.0) g/dL Hct (42-50) % MCV (78-100) fL MCH (26-32) pg MCHC (32-36) g/dL RDW (11.5-14.0) % Plt Count (150-450) x10^3/uL MPV (7.5-11.0) fL Gran % (36.0-66.0) % Immature Gran % (Auto) (0.00-0.4) % Nucleat RBC Rel Count (0.00-0.1) % Eos # (Auto) (0-0.5) x10^3/uL Immature Gran # (Auto) (0.00-0.03) x10^3u/L Absolute Lymphs (auto) (1.0-4.6) x10^3/uL Absolute Monos (auto) (0.0-1.3) x10^3/uL Absolute Nucleated RBC (0.00-0.01) x10^3u/L Lymphocytes % (24.0-44.0) % Monocytes % (0.0-12.0) % Eosinophils % (0.00-5.0) % Basophils % (0.0-0.4) % Absolute Granulocytes (1.4-6.9) x10^3/uL Basophils # (0-0.4) x10^3/uL Sodium 133 L (137-145) mmol/L Potassium 3.8 (3.5-5.1) mmol/L Chloride 102 (98-107) mmol/L Carbon Dioxide 17 L (22-30) mmol/L Anion Gap 18.5 H (5-15) MEQ/L BUN 7 L (9-20) mg/dL Creatinine 0.81 (0.66-1.25) mg/dL Estimated GFR > 60.0 ML/MIN Glucose 92 (74-106) mg/dL Calcium 9.0 (8.4-10.2) mg/dL Total Bilirubin 0.60 (0.2-1.3) mg/dL AST 36 (17-59) U/L ALT 30 (0-50) U/L Alkaline Phosphatase 76 (38-126) U/L Troponin I < 0.012 (0.000-0.034) ng/mL Serum Total Protein 7.8 (6.3-8.2) g/dL Albumin 4.3 (3.5-5.0) g/dL Urine Color Yellow (Yellow) Urine Appearance Clear (Clear) Urine pH 6.0 (4.6-8.0) Ur Specific [place] <=1.005 (1.005-1.030) Urine Protein Negative (Negative) Urine Glucose (UA) Negative (Negative) mg/dL Urine Ketones Negative (Negative) Urine Blood Small A (Negative) Urine Nitrite Negative (Negative) Urine Bilirubin Negative (Negative) Urine Urobilinogen 0.2 (0.2) mg/dL Ur Leukocyte Esterase Moderate A (Negative) U Hyaline Cast (Auto) NONE SEEN (0-2) /LPF Urine Microscopic RBC 0-2 (0-5) /HPF Urine Microscopic WBC 21-50 A (0-5) /HPF Ur Epithelial Cells None Seen (None Seen) /HPF Urine Bacteria Few A (None Seen) /HPF Urine Culture Reflexed YES (NO) 01/14/23 Range/Units 10:50 WBC 8.5 (4.0-10.5) x10^3/uL RBC 4.80 (4.1-5.6) x10^6/uL Hgb 14.9 (12.5-18.0) g/dL Hct 44.1 (42-50) % MCV 91.9 (78-100) fL MCH 31.0 (26-32) pg MCHC 33.8 (32-36) g/dL RDW 12.9 (11.5-14.0) % Plt Count 299 (150-450) x10^3/uL MPV 8.0 (7.5-11.0) fL Gran % 70.7 H (36.0-66.0) % Immature Gran % (Auto) 0.4 (0.00-0.4) % Nucleat RBC Rel Count 0.0 (0.00-0.1) % Eos # (Auto) 0.20 (0-0.5) x10^3/uL Immature Gran # (Auto) 0.03 (0.00-0.03) x10^3u/L Absolute Lymphs (auto) 1.34 (1.0-4.6) x10^3/uL Absolute Monos (auto) 0.86 (0.0-1.3) x10^3/uL Absolute Nucleated RBC 0.00 (0.00-0.01) x10^3u/L Lymphocytes % 15.7 L (24.0-44.0) % Monocytes % 10.1 (0.0-12.0) % Eosinophils % 2.4 (0.00-5.0) % Basophils % 0.7 (0.0-0.4) % Absolute Granulocytes 6.02 (1.4-6.9) x10^3/uL Basophils # 0.06 (0-0.4) x10^3/uL Sodium (137-145) mmol/L Potassium (3.5-5.1) mmol/L Chloride (98-107) mmol/L Carbon Dioxide (22-30) mmol/L Anion Gap (5-15) MEQ/L BUN (9-20) mg/dL Creatinine (0.66-1.25) mg/dL Estimated GFR ML/MIN Glucose (74-106) mg/dL Calcium (8.4-10.2) mg/dL Total Bilirubin (0.2-1.3) mg/dL AST (17-59) U/L ALT (0-50) U/L Alkaline Phosphatase (38-126) U/L Troponin I (0.000-0.034) ng/mL Serum Total Protein (6.3-8.2) g/dL Albumin (3.5-5.0) g/dL Urine Color (Yellow) Urine Appearance (Clear) Urine pH (4.6-8.0) Ur Specific Causey (1.005-1.030) Urine Protein (Negative) Urine Glucose (UA) (Negative) mg/dL Urine Ketones (Negative) Urine Blood (Negative) Urine Nitrite (Negative) Urine Bilirubin (Negative) Urine Urobilinogen (0.2) mg/dL Ur Leukocyte Esterase (Negative) U Hyaline Cast (Auto) (0-2) /LPF Urine Microscopic RBC (0-5) /HPF Urine Microscopic WBC (0-5) /HPF Ur Epithelial Cells (None Seen) /HPF Urine Bacteria (None Seen) /HPF Urine Culture Reflexed (NO) - Progress Progress: improved Progress Note: Spoke to Dr. Terrell urologist at who is partner manages our patient. Dr. Terrell reviewed the CT scan and states that the hydronephrosis and hydroureter is chronic and is part of his condition and does not merit transfer based on the hydroureter or hydronephrosis. He also states that patient will chronically have bacteria in his urine due to the procedure for the bladder cancer. We reviewed patient's vitals physical exam and laboratory findings. Dr. Terrell feels patient does not need to be transferred and may be discharged home.. 01/14/23 14:43 Patient is a 52-year-old male presents to our ED for evaluation of pain in his abdomen. Physical exam reveals some abdominal tenderness near the ostomy site. CT scan reveals bilateral hydroureter and hydronephrosis. There are some perinephric fluid. We are planning on transferring patient to to see the uro logist at the performing surgery. I spoke to his surgeon's partner Dr. Terrell who advised that transfer is not justified. Patient CT findings are chronic. CBC within normal limits. CMP showed a sodium of 133. Patient received IV fluids. Troponin negative. UA reveals a urinary tract infection. Patient received Dilaudid x3 doses. Pain is well controlled at this time. Patient states he normally takes [place] 04/13/2025's at home. However he recently ran out. Patient also received a dose of Rocephin IV for UTI. IV fluids infused. Patient states he is ready for discharge. Complexity of problem addressed is moderate acute complicated No critical care time Complexity of data reviewed and analyzed is extensive. Dr. Sanchez ordered reviewed and analyzed imaging study and laboratory work-up. Clinical correlation made between findings and physical examination. Consultation regarding patient management performed with Dr. Angelia Terrell urologist at . Complications and or risk morbidity/mortality patient management is high. Patient received controlled medications for pain control. Prescription for [place] and Keflex forwarded to patient's pharmacy. Plan of care discussed with patient. Plan of care established via shared decision making. Patient agrees to follow-up with his primary care doctor within 48 hours for reevaluation. No social determinants of health present to impede follow-up. Vital stable. Patient voices no other complaints or concerns at this time. Portions of this note were created with voice recognition technology. There may be grammatical, spelling, punctuation or sound alike errors 01/14/23 15:01 Counseled pt/family regarding: lab results, diagnosis - Departure Departure Disposition: Transfer Clinical Impression: Contusion of elbow, right, Fall, UTI (urinary tract infection), Hyponatremia, Hydronephrosis, Hydroureter, Fecal stasis Condition: Stable Critical Care Time: No Referrals: JULITO CASH MD [Primary Care Provider] - Follow up/PCP as directed Additional Instructions: Discharge/Care Plan MARIA E PUGA was seen on 01/14/23 in the Emergency Room. The patient was counseled regarding Diagnosis,Lab results, Imaging studies, need for follow up and when to return to the Emergency Room. Prescriptions given: Discharge Note I have spoken with the patient and/or caregivers. I have explained the patient's condition, diagnosis and treatment plan based on the information available to me at this time. I have answered the patient's and/or caregiver's questions and addressed any concerns. The patient and/or caregivers have as good understanding of the patient's diagnosis, condition and treatment plan as can be expected at this point. The vital signs have been stable. The patient's condition is stable and appropriate for discharge from the emergency department. The patient will pursue further outpatient evaluation with the primary care physician or other designated or consulting physician as outlined in the discharge instructions. The patient and/or caregivers are agreeable to this plan of care and follow-up instructions have been explained in detail. The patient and/or caregivers have received these instruction. The patient/and or caregivers are aware that any significant change in condition or worsening of symptoms should prompt an immediate return to this or the closest emergency department or call 911. Prescriptions: Hydrocodone/Acetaminophen [Hydrocodone-Acetamin 10-325 mg] 1 each PO Q6-8HPRN PRN #10 tablet MDD 4 PRN Reason: Pain Cephalexin Mh 500 mg [Keflex 500 mg] 500 mg PO TID #21 cap
[2023-01-14] MEDS ORDERED: Sodium Chloride 0.9% 1000 ML 1,000 ML ONE (10:57)
[2023-01-14] MEDS ORDERED: Hydromorphone 1 mg/ml Injection ONE ×4 (10:57→15:24)
[2023-01-14 11:01] LABS: Absolute Neutrophil Ct (ANC) 6.02 x10^3/uL (1.4-6.9); BASOPHIL % 0.7 % (0.0-0.4); Basophil (Absolute #) 0.06 x10^3/uL (0-0.4); Eosinophil % 2.4 % (0.00-5.0); Hematocrit 44.1 % (42-50); Hemoglobin 14.9 g/dL (12.5-18.0); IMMATURE GRAN # 0.03 x10^3u/L (0.00-0.03); IMMATURE GRAN % 0.4 % (0.00-0.4); Lymphocyte (Absolute #) 1.34 x10^3/uL (1.0-4.6); Lymphocytes % 15.7 % (24.0-44.0); Mean Cell Volume 91.9 fL (78-100); Mean Corpuscular Hgb Concent. 33.8 g/dL (32-36); Monocyte (Absolute #) 0.86 x10^3/uL (0.0-1.3); Monocytes % 10.1 % (0.0-12.0); Neutrophil % 70.7 % (36.0-66.0); Platelet Count 299 x10^3/uL (150-450); Red Cell Distribution Width 12.9 % (11.5-14.0); White Blood Count 8.5 x10^3/uL (4.0-10.5)
[2023-01-14 11:17] LABS: ALBUMIN 4.3 g/dL (3.5-5.0); ALKALINE PHOSPHATASE 76 U/L (38-126); ANION GAP 18.5 MEQ/L (5-15); BLOOD UREA NITROGEN 7 mg/dL (9-20); CHLORIDE 102 mmol/L (98-107); Carbon Dioxide 17 mmol/L (22-30); Creatinine 1 0.81 mg/dL (0.66-1.25); EST GLOMERULAR FILTRATION RATE > 60.0 ML/MIN; Glucose 92 mg/dL (74-106); Potassium 3.8 mmol/L (3.5-5.1); SGOT/AST 36 U/L (17-59); SGPT/ALT 30 U/L (0-50); SODIUM 133 mmol/L (137-145); Total Protein 7.8 g/dL (6.3-8.2)
[2023-01-14 11:25] LABS: Appearance Clear (Clear); Bacteria Few /HPF (None Seen); Bilirubin Negative (Negative); Blood Small (Negative); Epithelial Cells None Seen /HPF (None Seen); Glucose, Urine Negative (Negative); Hyaline Casts NONE SEEN /LPF (0-2); Ketones Negative (Negative); Leukocyte Esterase Moderate (Negative); Nitrite Negative (Negative); Protein,Urine Dip Negative (Negative); RBC 0-2 /HPF (0-5); Specific Gravity <=1.005 (1.005-1.030); Urobilinogen 0.2 mg/dL (0.2); WBC 21-50 /HPF (0-5)
[2023-01-14 11:26] LABS: ADD URINE CULTURE? YES (NO)
--- NOTE | 2023-01-14 11:37 | XRAY ---
Indication: Pain around stoma. Status post fall. Multiple contiguous axial images obtained through the abdomen and pelvis without contrast. Comparison: June 10, 2022 Lung bases clear. Heart not enlarged. Again beam artifact from bilateral L4-S1 fusion hardware. Stable prostatectomy and total cystectomy with bilateral diverting ureterostomy emptying through right midabdomen urostomy. Both kidneys are now mildly hydronephrotic without perinephric fluid. Both ureters are also now prominent, left ureter up to 1.3 cm and right up to 1 cm diameter. Right lower quadrant urostomy is mildly distended. No calculus or free fluid/air. Noncontrasted stomach and bowel loops nonobstructed again with normal appendix. There is now mild diffuse scattered colonic fecal debris throughout including rectum. Stable small hepatic calcified granulomas. Remaining liver, gallbladder, pancreas, spleen, adrenal glands, and kidneys are unremarkable for noncontrast exam. Stable mild scattered aortoiliac calcifications without AAA. Remaining osseous structures intact again with minimal degenerative spondylosis throughout the spine, grade 1 L5 spondylolisthesis, and old nonunited right 8 rib fracture. Impression: 1. New mild bilateral hydronephrosis and hydroureter without calculus. Intact right lower quadrant urostomy. 2. New mild diffuse fecal stasis. 3. Again chronic findings including multilevel degenerative spondylosis, grade 1 L4-L5 spondylolisthesis, L4-S1 fusion surgery, prostatectomy, total cystectomy, and old granulomatous disease.
[2023-01-14 11:39] VITALS: PULSE 81
--- NOTE | 2023-01-14 11:41 | XRAY ---
Indication: Pain following fall. Comparison: None 3 view right elbow demonstrates mild posterior soft tissue swelling. No other bony, articular, or soft tissue abnormalities.
[2023-01-14] MEDS ORDERED: ROCEPHIN 1 Gm-D5w 50 ml Bag** 1 G/50 ML IVPB IV STA (12:49)
[2023-01-14] MEDS ORDERED: ROCEPHIN 1 Gm-D5w 50 ml Bag** 1 G/50 ML IVPB IV ONE (12:53)
[2023-01-14 13:31] VITALS: O2SAT 98
[2023-01-14 15:24] VITALS: BP 151/109
== END 2023-01-14 15:46 | disposition home or self-care (01) ==
LOC: ED 10:31
DX: S50.01XA Contusion of right elbow, initial encounter (principal); W19.XXXA Unspecified fall, initial encounter; N39.0 Urinary tract infection, site not specified; E87.1 Hypo-osmolality and hyponatremia; N13.30 Unspecified hydronephrosis; N13.4 Hydroureter; K59.89 Other specified functional intestinal disorders; T83.84XA Pain due to genitourinary prosthetic devices, implants and grafts, initial encounter; I10 Essential (primary) hypertension; Z79.891 Long term (current) use of opiate analgesic; Z79.899 Other long term (current) drug therapy; Z72.0 Tobacco use
CPT/HCPCS: 36000; 36415; 73080; 74176; 80053; 81001; 84484; 85025; 87077; 87086; 87186; 96365; 96374; 96375; 96376; 99284; J0696; J1170

== ENCOUNTER 2023-04-14 14:42 | Emergency (ER) | payer OTHER ==
[2023-04-14 15:08] VITALS: PULSE 80; RESP 18; TEMP 99
--- NOTE | 2023-04-14 16:41 | ERPHSYRPT ---
- History of Present Illness Source: patient Exam Limitations: no limitations Patient Subjective Stated Complaint: pt states that he fell while carrying a latter yesterday. pt states that he woke up this morning with a headache and nasal congestion Triage Nursing Assessment: pt came into the er via wheelchair; pt transferred to cot per self; pt is axo x4; c/o fall; c/o headache; dry hacking cough present; abrasion to left eye brow; abrasion to left forearm; vitals wnl; skin PDW; hypertensive Physician History: 53 yo WM had a ground level fall yesterday onto concrete. Pt complains of [place]/+LOC/C-spine pain/L-spine pain/Abdominal pain around urostomy/L knee pain/coryza/mild cough. Pain is mild to moderate. Occurred: yesterday Reason for Fall: lost balance Injuries/Pain Location: head, neck, abdomen, back Loss of Consciousness: brief (seconds) Quality: aching Modifying Factors: Improves With: movement Allergies/Adverse Reactions: morphine Allergy (Intermediate, Verified 04/14/23 14:55) anger Home Medications: Levothyroxine Sodium [Synthroid] 137 mcg PO DAILY 09/19/15 [History] Venlafaxine HCl [Effexor] 150 mg PO DAILY 09/19/15 [History] Lisinopril 10 mg [Zestril 10 MG] 20 mg PO DAILY 07/11/16 [History] Carvedilol 12.5 mg [Coreg 12.5 mg] 12.5 mg PO BID 01/14/23 [History] Hx Tetanus, Diphtheria Vaccination/Date Given: Yes Hx Influenza Vaccination/Date Given: No Hx Pneumococcal Vaccination/Date Given: No Travel Risk - International Travel Have you traveled outside of the country in past 3 weeks: No - Coronavirus Screening Are you exhibiting any of the following symptoms?: Yes Symptoms: Headaches/Body Aches/Fatigue Close contact with a COVID-19 positive Pt in past 14-21 Days: No - Vaccine Status Have you recieved a Covid-19 vaccination: Yes 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: [employer] - Vaccination Dates Date of 2cond Vaccination (if applicable): September 2020 - Review of Systems Constitutional: No Symptoms, Malaise Eyes: No Symptoms Ears, Nose, & Throat: No Symptoms, Nose Congestion Respiratory: No Symptoms Cardiac: No Symptoms Abdominal/Gastrointestinal: No Symptoms Genitourinary Symptoms: No Symptoms Skin: No Symptoms Neurological: No Symptoms, Headache Psychological: No Symptoms Endocrine: No Symptoms Hematologic/Lymphatic: No Symptoms Immunological/Allergic: No Symptoms - Past Medical History Pertinent Past Medical History: Yes Neurological History: No Pertinent History ENT History: No Pertinent History Cardiac History: Hypertension Respiratory History: COPD Endocrine Medical History: Hypothyroidism Musculoskeletal History: Arthritis, Fractures GI Medical History: GERD History: Bladder Cancer Psycho-Social History: Anxiety, Depression Male Reproductive Disorders: Prostate Cancer Other Medical History: L KNEE MULTIPLE SURGERIES, R KNEE SURGERY; BILATERAL SHOULDER LABRAL REPAIRS. non hodgkins lymphoma. melanoma left ear - Past Surgical History Past Surgical History: Yes Neuro Surgical History: No Pertinent History Cardiac: Cardiac Catheterization Respiratory: No Pertinent History Gastrointestinal: No Pertinent History, Other Genitourinary: No Pertinent History Musculoskeletal: Orthopedic Surgery Male Surgical History: No Pertinent History Other Surgical History: bladder removed, prostate removed, and 19 lymph nodes removed 04/01 - Social History Smoking Status: Current every day smoker How long have you smoked: 25 years Exposure to second hand smoke: No Alcohol Use: Socially Drug Use: none Patient Lives Alone: Yes Significant Family History: no pertinent family hx - Nursing Vital Signs Nursing Vital Signs: Initial Vital Signs Temperature 99 F 04/14/23 14:57 Pulse Rate 80 04/14/23 14:57 Respiratory Rate 18 04/14/23 14:57 Blood Pressure 165/107 04/14/23 14:57 O2 Sat by Pulse Oximetry 95 04/14/23 14:57 Pain Scale Pain Intensity 8 Hypertensive - [place] Coma Score Best Eye Response ([place]): (4) open spontaneously Best Verbal Response (Yessy): (5) oriented Best Motor Response (Yessy): (6) obeys commands Yessy Total: 15 - Physical Exam General Appearance: no apparent distress Head Injury: tenderness (Mild diffuse TTP) Eye Exam: PERRL/EOMI, eyes nml inspection ENT Exam: airway nml, No evidence of ENT injury, No clear fluid (ears), No clear fluid (nose) Neck Exam: supple, tenderness (C-spine mildly TTP) Respiratory/Chest Exam: normal breath sounds, No chest tenderness, No respiratory distress Cardiovascular Exam: normal heart sounds, regular rate/rhythm, normal peripheral pulses, No murmur Gastrointestinal Exam: soft, normal bowel sounds, tenderness (Mild TTP around urostomy tube) Back Exam: vertebral tenderness (Nild L-spine TTP) Extremity Exam: capillary refill <3 sec, pelvis stable, bony point tenderness (Mild L anterior knee TTP w abrasions) Neurologic Exam: alert, oriented x 3, 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, 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, normal mood/affect, nml cerebellar function, nml station & gait, sensation nml, No motor deficits, No sensory deficit Skin Exam: normal color, warm, dry SpO2: 90 (Sats mid 90's during majority of visit) O2 Delivery: Room Air - Course Nursing assessment & vital signs reviewed: Yes - Radiology Exams Knee X-ray Interpretation: Interpreted by me (L knee neg per ER read) - CT Exams Head CT Interpretation: Discussed w/radiologist (NAD/paranasal sinus disease) Cervical Spine CT Interpretation: Discussed w/radiologist (NAD) Chest CT Interpretation: Discussed w/radiologist (B nodules/old rib fx's/nothing acute) Abdomen/Pelvis CT Interpretation: Discussed w/radiologist (Cystectomy/urostomy/nothing acute) Ordered Tests: Active Orders 24 hr Category Date Time Status ABDOMEN AND PELVIS W CONTRAST [CT] Stat Exams 04/14/23 16:38 Completed CERVICAL SPINE WO CONTRAST [CT] Stat Exams 04/14/23 16:38 Completed CHEST WITH CONTRAST [CT] Stat Exams 04/14/23 16:39 Completed HEAD WITHOUT CONTRAST [CT] Stat Exams 04/14/23 16:38 Completed KNEE (3 VIEWS) Stat Exams 04/14/23 16:40 Taken BMP Stat Lab 04/14/23 14:58 Completed Medication Summary Discontinued Medications Generic Name Dose Route Start Last Admin Trade Name Sheeba PRN Reason Stop Dose Admin Hydrocodone Bitart/Acetaminophen 2 tab 04/14/23 18:49 04/14/23 18:57 Hydrocodone/Apap 5/325 1 Tab Tablet PO 04/14/23 18:50 2 tab SENT HOME W/ PATIENT ONE Administration Hydrocodone Bitart/Acetaminophen Confirm 04/14/23 18:54 Hydrocodone/Apap 5/325 1 Tab Tablet Administered 04/14/23 18:55 Dose 2 tab .ROUTE .STK-MED ONE Ketorolac Tromethamine 15 mg 04/14/23 18:48 04/14/23 18:59 Ketorolac Tromethamine 30 Mg/Ml Inj IV 04/14/23 18:49 15 mg STAT ONE Administration Ketorolac Tromethamine Confirm 04/14/23 18:54 Ketorolac Tromethamine 30 Mg/Ml Inj Administered 04/14/23 18:55 Dose 30 mg .ROUTE .STK-MED ONE Lab/Rad Data: Laboratory Result Diagrams 04/14/23 14:58 Laboratory Results 04/14/23 04/14/23 Range/Units Unknown 14:58 Sodium 138 (137-145) mmol/L Potassium 3.2 L (3.5-5.1) mmol/L Chloride 106 (98-107) mmol/L Carbon Dioxide 21 L (22-30) mmol/L Anion Gap 14.3 (5-15) MEQ/L BUN 7 L (9-20) mg/dL Creatinine 0.81 (0.66-1.25) mg/dL Estimated GFR > 60.0 ML/MIN Glucose 90 (74-106) mg/dL Calcium 8.4 (8.4-10.2) mg/dL Influenza Type A Ag NEGATIVE (NEGATIVE) Influenza Type B Ag NEGATIVE (NEGATIVE) RSV (PCR) NEGATIVE (NEGATIVE) SARS-CoV-2 (PCR) POSITIVE A (NEGATIVE) - Progress Progress Note: 04/14/23 23:49 Nursing note and vital signs reviewed No food or housing insecurities noted All lab results reviewed and shared w pt All CT results reviewed and shared w pt, including finding of noncalcified lung nodules 04/14/23 23:50 15mg IV Toradol Moran take home pack Recommended that pt follow up with his oncologist Counseled pt/family regarding: lab results, diagnosis, need for follow-up, rad results Medical Desision Making - Diagnostic Testing Diagnostic test were ordered, analyzed, and reviewed by me: Yes Radiological Interpretation: Reviewed by me - Risk of complications The pt has a mod risk of morbidity or mortality based on: Need for prescription drug management - Departure Departure Disposition: Home Clinical Impression: COVID-19, Minor head injury, Lumbar strain, Cervical strain, Lung nodules Condition: Stable Critical Care Time: No Referrals: JULITO CASH MD [Primary Care Provider] - Follow up/PCP as directed Instructions: Head Injury in Adults (DC), Contusion (DC), Cervical Muscle Strain (DC), COVID-19 (DC) Additional Instructions: 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
[2023-04-14 17:15] LABS: ANION GAP 14.3 MEQ/L (5-15); BLOOD UREA NITROGEN 7 mg/dL (9-20); CHLORIDE 106 mmol/L (98-107); Calcium 8.4 mg/dL (8.4-10.2); Carbon Dioxide 21 mmol/L (22-30); Creatinine 1 0.81 mg/dL (0.66-1.25); EST GLOMERULAR FILTRATION RATE > 60.0 ML/MIN; Glucose 90 mg/dL (74-106); Potassium 3.2 mmol/L (3.5-5.1); SODIUM 138 mmol/L (137-145)
[2023-04-14 17:37] LABS: INFLUENZA A NEGATIVE (NEGATIVE); INFLUENZA B NEGATIVE (NEGATIVE); RESPIRATORY SYNCTIAL VIRUS NEGATIVE (NEGATIVE)
[2023-04-14 17:39] LABS: SARS-CoV-2 Xpert Express POSITIVE (NEGATIVE)
--- NOTE | 2023-04-14 17:47 | XRAY ---
Indication: Status post fall. Multiple contiguous axial images obtained through the head without contrast. Comparison: October 14, 2013 Normal appearing brain parenchyma, ventricles, and bony calvarium for patient's age. Mild mucosal thickening both ethmoid and lesser degree both sphenoid/left maxillary sinuses. Mastoid air cells are clear. Impression: Paranasal sinuses disease. Remaining CT head without contrast exam continues to be normal.
--- NOTE | 2023-04-14 17:51 | XRAY ---
Indication: Status post fall. Multiple contiguous axial images obtained through the cervical spine. Sagittal and coronal reformatted images obtained. Comparison: None Beam artifact from bilateral C2-T2 posterior fusion hardware and C6-C7 anterior fusion hardware. Axial images grossly negative for acute fracture, suspicious bony lesions, or spinal canal stenosis. Mild C5-C6 degenerative endplate spurring. Sagittal and coronal reformatted images demonstrates normal alignment with C5-C6 disc space loss. No acute compression fracture, subluxation, or jumped facet. Normal appearing craniocervical junction. Visualized noncontrasted soft tissues demonstrates mild bilateral carotid calcifications. CT chest reported separately. Impression: Beam artifact from C2-T1 fusion hardware limits exam. Grossly negative acute fracture/subluxation. C5-C6 degenerative disc disease.
--- NOTE | 2023-04-14 17:55 | XRAY ---
Indication: Status post fall. Multiple contiguous axial images obtained through the chest using 80 cc Isovue 370 contrast. Comparison: April 27, 2022 Lungs now demonstrates mild bilateral dependent atelectasis. No suspicious pulmonary mass right upper lobe demonstrates 3 new noncalcified micronodules, largest 8mm. Left demonstrates two new 4 mm noncalcified nodules. Right lower lobe demonstrates new 5 mm noncalcified nodule. Metastatic malignancy is of primary concern. No infiltrate, effusion, or pneumothorax. Heart not enlarged. Aorta is mildly arteriosclerotic without aneurysm/dissection. No pathologic mediastinal/hilar lymphadenopathy. Bony thorax intact again with mild/moderate degenerative changes throughout the spine again greatest at T7-T8. Also stable multiple bilateral old rib fractures. CT abdomen/pelvis reported separately. Impression: 1. New multiple bilateral noncalcified micronodules. Rule out metastasis. 2. Again multilevel degenerative spondylosis and multiple old bilateral rib fractures. 3. No acute cardiopulmonary abnormalities.
--- NOTE | 2023-04-14 17:59 | XRAY ---
Indication: Status post fall. Multiple contiguous axial images obtained through the abdomen and pelvis using 80 cc Isovue 370 contrast. Comparison: January 14, 2023 CT chest reported separately. Again beam artifact from bilateral L4-S1 fusion hardware. Stable prostatectomy and total cystectomy with bilateral diverting urostomy emptying through right mid abdomen ostomy. 1 cm left lower renal cortical cyst not seen on previous noncontrast exam. Noncontrasted stomach and bowel loops nonobstructed with normal appendix. No free fluid/air. Remaining liver, gallbladder, pancreas, spleen, adrenal glands, kidneys, and ureters are unremarkable. Again mild aortoiliac calcifications without AAA. No pathologic retroperitoneal lymphadenopathy. Osseous structures intact again with minimal degenerative changes throughout the spine, and grade 1 L5 spondylolisthesis. Impression: 1. Again beam artifact from L4-S1 fusion hardware. 2. Chronic findings including prostatectomy, total cystectomy with bilateral diverting urostomy, left renal cyst, and chronic bony findings. 3. Remaining CT abdomen/pelvis with contrast exam is negative.
[2023-04-14] MEDS ORDERED: TORAdol 30 mg Injection IV ONE (18:48)
[2023-04-14] MEDS ORDERED: NORCO 5/325 MG PO ONE (18:49)
[2023-04-14 18:54] VITALS: O2SAT 90
[2023-04-14] MEDS ORDERED: TORAdol 30 mg Injection ONE (18:54)
[2023-04-14] MEDS ORDERED: NORCO 5/325 MG ONE (18:54)
[2023-04-14 19:02] VITALS: BP 152/81
--- NOTE | 2023-04-15 09:14 | XRAY ---
Indication: Pain following fall. Comparison: December 11, 2013 3 view left knee demonstrates progressive worsening moderate/advanced tricompartmental degenerative changes greatest medial compartment and new minimal distal femoral artery calcifications. Stable chronic cortical/subcortical deformities tibial tuberosity with soft tissue swelling. No other bony, articular, or soft tissue abnormalities.
== END 2023-04-14 19:20 | disposition home or self-care (01) ==
LOC: ED 14:42
DX: S09.90XA Unspecified injury of head, initial encounter (principal); S16.1XXA Strain of muscle, fascia and tendon at neck level, initial encounter; S39.012A Strain of muscle, fascia and tendon of lower back, initial encounter; W19.XXXA Unspecified fall, initial encounter; U07.1 COVID-19; R91.8 Other nonspecific abnormal finding of lung field; R51.9 Headache, unspecified; M25.562 Pain in left knee; R09.81 Nasal congestion; R05.9 Cough, unspecified; I10 Essential (primary) hypertension; Z79.899 Other long term (current) drug therapy; Z72.0 Tobacco use
CPT/HCPCS: 0241U; 36000; 36415; 70450; 71260; 72125; 73562; 74177; 80048; 96374; 99284; J1885; A9270-GY

== ENCOUNTER 2023-04-29 10:24 | Observation (INO) | payer OTHER ==
[2023-04-29] MEDS ORDERED: Sodium Chloride 0.9% 1000 ML 1,000 ML ONE (11:08)
[2023-04-29] MEDS ORDERED: Sodium Chloride 0.9% 1000 ML 1,000 ML IV STA (11:10)
[2023-04-29] MEDS ORDERED: TYLENOL 325 MG PO ONE (11:11)
[2023-04-29] MEDS ORDERED: Zofran 4 MG/2 ML VIAL IV ONE (11:11)
[2023-04-29] MEDS ORDERED: TYLENOL 325 MG ONE (11:16)
[2023-04-29] MEDS ORDERED: Zofran 4 MG/2 ML VIAL ONE (11:16)
--- NOTE | 2023-04-29 11:16 | ERPHSYRPT ---
- History of Present Illness Time Seen by Provider: 04/29/23 10:55 Source: patient, family Exam Limitations: no limitations Patient Subjective Stated Complaint: Pt states "I had covid three weeks ago and I have tested negative since but this morning my head is killing me, my body hurts, I have diarrhea and I just ache all over. I have had a fever and a cough." Triage Nursing Assessment: Pt presented alert and oriented X 3, skin pwd. pt ambulates with an upright staedy gait, able to speak in clear full sentences. Pt moaning and groaing. Physician History: 53 years old male with history of melanoma, non-Hodgkin's lymphoma, bladder and prostate cancer status post resection with permanent urostomy who was recently diagnosed with COVID-19, took Paxlovid was doing fine until early this week and having again symptoms of generalized body aches fatigue tiredness, rectal dry cough, loose stool, headache and low-grade temperature with a Tmax of 101. Patient has 2 negative home COVID test before. Patient blood pressure is borderline and with standing he is hypotensive with systolic dropping to his 60s and is dizzy lightheaded. Denies any chest pain or palpitations. Has diarrhea with some nausea but no abdominal pain. Allergies/Adverse Reactions: morphine Allergy (Intermediate, Verified 04/14/23 14:55) anger Home Medications: Levothyroxine Sodium [Synthroid] 137 mcg PO DAILY 09/19/15 [History] Venlafaxine HCl [Effexor] 150 mg PO DAILY 09/19/15 [History] Lisinopril 10 mg [Zestril 10 MG] 20 mg PO DAILY 07/11/16 [History] Carvedilol 12.5 mg [Coreg 12.5 mg] 12.5 mg PO BID 01/14/23 [History] Hx Tetanus, Diphtheria Vaccination/Date Given: Yes Hx Influenza Vaccination/Date Given: No Hx Pneumococcal Vaccination/Date Given: No Immunizations Up to Date: No Travel Risk - International Travel Have you traveled outside of the country in past 3 weeks: No - Coronavirus Screening Are you exhibiting any of the following symptoms?: Yes Symptoms: Fever, Cough: New Onset, Shortness of Breath, Vomiting/Diarrhea, H eadaches/Body Aches/Fatigue Close contact with a COVID-19 positive Pt in past 14-21 Days: No - Vaccine Status Have you recieved a Covid-19 vaccination: Yes [facility] [employer]: [employer] - Vaccination Dates Date of 2cond Vaccination (if applicable): September 2020 - Review of Systems Constitutional: Fever, Chills, Fatigue, Weakness Eyes: No Symptoms Ears, Nose, & Throat: No Symptoms Respiratory: Cough Cardiac: No Symptoms Abdominal/Gastrointestinal: Nausea, Diarrhea Genitourinary Symptoms: Other Musculoskeletal: Myalgias Skin: No Symptoms Neurological: Headache Psychological: No Symptoms Endocrine: No Symptoms Immunological/Allergic: No Symptoms - Past Medical History Pertinent Past Medical History: Yes Neurological History: No Pertinent History ENT History: No Pertinent History Cardiac History: Hypertension Respiratory History: COPD Endocrine Medical History: Hypothyroidism Musculoskeletal History: Arthritis, Fractures GI Medical History: GERD History: Bladder Cancer Psycho-Social History: Anxiety, Depression Male Reproductive Disorders: Prostate Cancer Other Medical History: L KNEE MULTIPLE SURGERIES, R KNEE SURGERY; BILATERAL SHOULDER LABRAL REPAIRS. non hodgkins lymphoma. melanoma left ear - Past Surgical History Past Surgical History: Yes Neuro Surgical History: No Pertinent History Cardiac: Cardiac Catheterization Respiratory: No Pertinent History Gastrointestinal: No Pertinent History, Other Genitourinary: No Pertinent History Musculoskeletal: Orthopedic Surgery Male Surgical History: No Pertinent History Other Surgical History: bladder removed, prostate removed, and 19 lymph nodes removed 04/01 - Social History Smoking Status: Current every day smoker How long have you smoked: 25 years Exposure to second hand smoke: No Alcohol Use: Socially Drug Use: none Patient Lives Alone: Yes Significant Family History: no pertinent family hx - Nursing Vital Signs Nursing Vital Signs: Initial Vital Signs Temperature 97.5 F 04/29/23 10:28 Pulse Rate 79 04/29/23 10:28 Respiratory Rate 22 04/29/23 10:28 Blood Pressure 100/65 04/29/23 10:28 O2 Sat by Pulse Oximetry 99 04/29/23 10:28 Pain Scale Pain Intensity 8 - Physical Exam General Appearance: no apparent distress, alert Eye Exam: PERRL/EOMI Ears, Nose, Throat Exam: TMs normal, pharynx normal Neck Exam: normal inspection, non-tender, supple, full range of motion Respiratory Exam: normal breath sounds, lungs clear Cardiovascular Exam: regular rate/rhythm, normal heart sounds Gastrointestinal/Abdomen Exam: soft, normal bowel sounds, other (Urostomy well in place), No tenderness Extremity Exam: normal inspection, normal range of motion Neurologic Exam: alert, oriented x 3, cooperative Skin Exam: normal color SpO2 Interpretation: normal SpO2: 98 O2 Delivery: Room Air Ordered Tests: Active Orders 24 hr Category Date Time Status IV Insertion STAT Care 04/29/23 11:11 Active CHEST 1 VIEW (PORTABLE) Stat Exams 04/29/23 10:46 Completed BLOOD CULTURE Stat Lab 04/29/23 11:20 Received CBC W DIFF Stat Lab 04/29/23 11:11 Completed CMP Stat Lab 04/29/23 11:22 Completed CULTURE,URINE Stat Lab 04/29/23 12:01 Received LIPASE Stat Lab 04/29/23 11:22 Completed Lactic Acid Stat Lab 04/29/23 11:11 Completed Lactic Acid Stat Lab 04/29/23 13:26 Received MAGNESIUM Stat Lab 04/29/23 11:22 Completed PROCALCITONIN Stat Lab 04/29/23 11:22 Completed TROPONIN Q4H Lab 04/29/23 11:22 Completed TROPONIN Q4H Lab 04/29/23 15:15 Ordered TROPONIN Q4H Lab 04/29/23 19:15 Ordered TSH, 3RD Generation Stat Lab 04/29/23 11:22 Completed UA W/RFX UR CULTURE Stat Lab 04/29/23 12:01 Completed Medication Summary Discontinued Medications Generic Name Dose Route Start Last Admin Trade Name Sheeba PRN Reason Stop Dose Admin Acetaminophen 975 mg 04/29/23 11:11 04/29/23 11:17 Acetaminophen 325 Mg Tablet PO 04/29/23 11:12 975 mg STAT ONE Administration Acetaminophen Confirm 04/29/23 11:16 Acetaminophen 325 Mg Tablet Administered 04/29/23 11:17 Dose 975 mg .ROUTE .STK-MED ONE Sodium Chloride 1,000 mls @ 999 mls/hr 04/29/23 11:10 04/29/23 12:14 Sodium Chloride 0.9% 1000 Ml IV 04/29/23 12:10 Infused .Q1H1M STA Infusion Sodium Chloride Confirm 04/29/23 11:08 Sodium Chloride 0.9% 1000 Ml Administered 04/29/23 11:09 Dose 1,000 mls @ ud .ROUTE .STK-MED ONE Ceftriaxone Sodium/Dextrose 2 g in 50 mls @ 100 mls/hr 04/29/23 12:55 04/29/23 13:01 Rocephin 2 Gm-D5w 50ml Bag IV 04/29/23 13:24 100 mls/hr STAT STA 100 mls/hr Administration Azithromycin 500 mg in 250 mls @ 250 mls/hr 04/29/23 12:55 04/29/23 13:13 Zithromax 500 Mg/ 250 Ml Nacl Premix IV 04/29/23 13:54 250 mls/hr STAT STA 250 mls/hr Administration Ceftriaxone Sodium/Dextrose Confirm 04/29/23 12:58 Rocephin 2 Gm-D5w 50ml Bag Administered 04/29/23 12:59 Dose 2 g in 50 mls @ ud IV .STK-MED ONE Azithromycin Confirm 04/29/23 13:10 Zithromax 500 Mg/ 250 Ml Nacl Premix Administered 04/29/23 13:11 Dose 500 mg in 250 mls @ ud IV .STK-MED ONE Ketorolac Tromethamine 30 mg 04/29/23 13:04 04/29/23 13:12 Ketorolac Tromethamine 30 Mg/Ml Inj IM 04/29/23 13:05 30 mg STAT ONE Administration Ketorolac Tromethamine Confirm 04/29/23 13:10 Ketorolac Tromethamine 30 Mg/Ml Inj Administered 04/29/23 13:11 Dose 30 mg .ROUTE .STK-MED ONE Ondansetron HCl 4 mg 04/29/23 11:11 04/29/23 11:17 Ondansetron Hcl 4 Mg/2 Ml Vial IV 04/29/23 11:12 4 mg STAT ONE Administration Ondansetron HCl Confirm 04/29/23 11:16 Ondansetron Hcl 4 Mg/2 Ml Vial Administered 04/29/23 11:17 Dose 4 mg .ROUTE .STK-MED ONE Potassium Chloride 40 meq 04/29/23 11:52 04/29/23 11:55 Potassium Chloride Tab 10 Meq Tab PO 04/29/23 11:53 40 meq STAT ONE Administration Potassium Chloride Confirm 04/29/23 11:55 Potassium Chloride Tab 10 Meq Tab Administered 04/29/23 11:56 Dose 40 meq PO .STK-MED ONE Lab/Rad Data: Laboratory Result Diagrams 04/29/23 11:11 04/29/23 11:22 Laboratory Results 04/29/23 04/29/2304/29/23 Range/Units 12:01 11:22 11:22 WBC (4.0-10.5) x10^3/uL RBC (4.1-5.6) x10^6/uL Hgb (12.5-18.0) g/dL Hct (42-50) % MCV (78-100) fL MCH (26-32) pg MCHC (32-36) g/dL RDW (11.5-14.0) % Plt Count (150-450) x10^3/uL MPV (7.5-11.0) fL Gran % (36.0-66.0) % Immature Gran % (Auto) (0.00-0.4) % Nucleat RBC Rel Count (0.00-0.1) % Eos # (Auto) (0-0.5) x10^3/uL Immature Gran # (Auto) (0.00-0.03) x10^3u/L Absolute Lymphs (auto) (1.0-4.6) x10^3/uL Absolute Monos (auto) (0.0-1.3) x10^3/uL Absolute Nucleated RBC (0.00-0.01) x10^3u/L Lymphocytes % (24.0-44.0) % Monocytes % (0.0-12.0) % Eosinophils % (0.00-5.0) % Basophils % (0.0-0.4) % Absolute Granulocytes (1.4-6.9) x10^3/uL Basophils # (0-0.4) x10^3/uL Sodium (137-145) mmol/L Potassium (3.5-5.1) mmol/L Chloride (98-107) mmol/L Carbon Dioxide (22-30) mmol/L Anion Gap (5-15) MEQ/L BUN (9-20) mg/dL Creatinine (0.66-1.25) mg/dL Estimated GFR ML/MIN Glucose (74-106) mg/dL Lactic Acid (0.4-2.0) Calcium (8.4-10.2) mg/dL Magnesium 2.0 (1.6-2.3) mg/dL Total Bilirubin (0.2-1.3) mg/dL AST (17-59) U/L ALT (0-50) U/L Alkaline Phosphatase (38-126) U/L Troponin I < 0.012 (0.000-0.034) ng/mL Serum Total Protein (6.3-8.2) g/dL Albumin (3.5-5.0) g/dL Lipase (23-300) U/L Procalcitonin 0.190 H (0.030-0.080) ng/mL TSH 3rd Generation 0.647 (0.47-4.68) mIU/L Urine Color Yellow (Yellow) Urine Appearance Cloudy A (Clear) Urine pH 6.5 (4.6-8.0) Ur Specific [place] 1.010 (1.005-1.030) Urine Protein 30 (Negative) Urine Glucose (UA) Negative (Negative) mg/dL Urine Ketones Negative (Negative) Urine Blood Trace (Negative) Urine Nitrite Negative (Negative) Urine Bilirubin Negative (Negative) Urine Urobilinogen 0.2 (0.2) mg/dL Ur Leukocyte Esterase Large A (Negative) U Hyaline Cast (Auto) 6-10 A (0-2) /LPF Urine Microscopic RBC 3-5 (0-5) /HPF Urine Microscopic WBC 21-50 A (0-5) /HPF Ur Epithelial Cells None Seen (None Seen) /HPF Urine Bacteria Many A (None Seen) /HPF Urine Culture Reflexed YES (NO) Influenza Type A Ag (NEGATIVE) Influenza Type B Ag (NEGATIVE) RSV (PCR) (NEGATIVE) SARS-CoV-2 (PCR) (NEGATIVE) Group A Strep Antibody (NEGATIVE) 04/29/23 04/29/23 04/29/23 Range/Units 11:22 11:11 11:11 WBC 10.7 H (4.0-10.5) x10^3/uL RBC 4.89 (4.1-5.6) x10^6/uL Hgb 14.9 (12.5-18.0) g/dL Hct 44.1 (42-50) % MCV 90.2 (78-100) fL MCH 30.5 (26-32) pg MCHC 33.8 (32-36) g/dL RDW 12.4 (11.5-14.0) % Plt Count 240 (150-450) x10^3/uL MPV 9.2 (7.5-11.0) fL Gran % 77.9 H (36.0-66.0) % Immature Gran % (Auto) 0.3 (0.00-0.4) % Nucleat RBC Rel Count 0.0 (0.00-0.1) % Eos # (Auto) 0.03 (0-0.5) x10^3/uL Immature Gran # (Auto) 0.03 (0.00-0.03) x10^3u/L Absolute Lymphs (auto) 0.81 L (1.0-4.6) x10^3/uL Absolute Monos (auto) 1.45 H (0.0-1.3) x10^3/uL Absolute Nucleated RBC 0.00 (0.00-0.01) x10^3u/L Lymphocytes % 7.6 L (24.0-44.0) % Monocytes % 13.6 H (0.0-12.0) % Eosinophils % 0.3 (0.00-5.0) % Basophils % 0.3 (0.0-0.4) % Absolute Granulocytes 8.32 H (1.4-6.9) x10^3/uL Basophils # 0.03 (0-0.4) x10^3/uL Sodium 130 L (137-145) mmol/L Potassium 3.0 L* (3.5-5.1) mmol/L Chloride 98 (98-107) mmol/L Carbon Dioxide 20 L (22-30) mmol/L Anion Gap 14.8 (5-15) MEQ/L BUN 8 L (9-20) mg/dL Creatinine 0.99 (0.66-1.25) mg/dL Estimated GFR > 60.0 ML/MIN Glucose 208 H (74-106) mg/dL Lactic Acid 2.6 H (0.4-2.0) Calcium 9.0 (8.4-10.2) mg/dL Magnesium (1.6-2.3) mg/dL Total Bilirubin 0.60 (0.2-1.3) mg/dL AST 30 (17-59) U/L ALT 24 (0-50) U/L Alkaline Phosphatase 62 (38-126) U/L Troponin I (0.000-0.034) ng/mL Serum Total Protein 6.3 (6.3-8.2) g/dL Albumin 3.7 (3.5-5.0) g/dL Lipase 45 (23-300) U/L Procalcitonin (0.030-0.080) ng/mL TSH 3rd Generation (0.47-4.68) mIU/L Urine Color (Yellow) Urine Appearance (Clear) Urine pH (4.6-8.0) Ur Specific [place] (1.005-1.030) Urine Protein (Negative) Urine Glucose (UA) (Negative) mg/dL Urine Ketones (Negative) Urine Blood (Negative) Urine Nitrite (Negative) Urine Bilirubin (Negative) Urine Urobilinogen (0.2) mg/dL Ur Leukocyte Esterase (Negative) U Hyaline Cast (Auto) (0-2) /LPF Urine Microscopic RBC (0-5) /HPF Urine Microscopic WBC (0-5) /HPF Ur Epithelial Cells (None Seen) /HPF Urine Bacteria (None Seen) /HPF Urine Culture Reflexed (NO) Influenza Type A Ag (NEGATIVE) Influenza Type B Ag (NEGATIVE) RSV (PCR) (NEGATIVE) SARS-CoV-2 (PCR) (NEGATIVE) Group A Strep Antibody (NEGATIVE) 04/29/23 Range/Units 11:10 WBC (4.0-10.5) x10^3/uL RBC (4.1-5.6) x10^6/uL Hgb (12.5-18.0) g/dL Hct (42-50) % MCV (78-100) fL MCH (26-32) pg MCHC (32-36) g/dL RDW (11.5-14.0) % Plt Count (150-450) x10^3/uL MPV (7.5-11.0) fL Gran % (36.0-66.0) % Immature Gran % (Auto) (0.00-0.4) % Nucleat RBC Rel Count (0.00-0.1) % Eos # (Auto) (0-0.5) x10^3/uL Immature Gran # (Auto) (0.00-0.03) x10^3u/L Absolute Lymphs (auto) (1.0-4.6) x10^3/uL Absolute Monos (auto) (0.0-1.3) x10^3/uL Absolute Nucleated RBC (0.00-0.01) x10^3u/L Lymphocytes % (24.0-44.0) % Monocytes % (0.0-12.0) % Eosinophils % (0.00-5.0) % Basophils % (0.0-0.4) % Absolute Granulocytes (1.4-6.9) x10^3/uL Basophils # (0-0.4) x10^3/uL Sodium (137-145) mmol/L Potassium (3.5-5.1) mmol/L Chloride (98-107) mmol/L Carbon Dioxide (22-30) mmol/L Anion Gap (5-15) MEQ/L BUN (9-20) mg/dL Creatinine (0.66-1.25) mg/dL Estimated GFR ML/MIN Glucose (74-106) mg/dL Lactic Acid (0.4-2.0) Calcium (8.4-10.2) mg/dL Magnesium (1.6-2.3) mg/dL Total Bilirubin (0.2-1.3) mg/dL AST (17-59) U/L ALT (0-50) U/L Alkaline Phosphatase (38-126) U/L Troponin I (0.000-0.034) ng/mL Serum Total Protein (6.3-8.2) g/dL Albumin (3.5-5.0) g/dL Lipase (23-300) U/L Procalcitonin (0.030-0.080) ng/mL TSH 3rd Generation (0.47-4.68) mIU/L Urine Color (Yellow) Urine Appearance (Clear) Urine pH (4.6-8.0) Ur Specific [place] (1.005-1.030) Urine Protein (Negative) Urine Glucose (UA) (Negative) mg/dL Urine Ketones (Negative) Urine Blood (Negative) Urine Nitrite (Negative) Urine Bilirubin (Negative) Urine Urobilinogen (0.2) mg/dL Ur Leukocyte Esterase (Negative) U Hyaline Cast (Auto) (0-2) /LPF Urine Microscopic RBC (0-5) /HPF Urine Microscopic WBC (0-5) /HPF Ur Epithelial Cells (None Seen) /HPF Urine Bacteria (None Seen) /HPF Urine Culture Reflexed (NO) Influenza Type A Ag NEGATIVE (NEGATIVE) Influenza Type B Ag NEGATIVE (NEGATIVE) RSV (PCR) NEGATIVE (NEGATIVE) SARS-CoV-2 (PCR) NEGATIVE (NEGATIVE) Group A Strep Antibody NOT DETECTED (NEGATIVE) - Progress Progress: improved, re-examined Air Movement: good Progress Note: 04/29/23 11:16 53 years old male with history of melanoma, non-Hodgkin's lymphoma, bladder and prostate cancer status post resection with permanent urostomy who was recently diagnosed with COVID-19, took Paxlovid was doing fine until early this week and having again symptoms of generalized body aches fatigue tiredness, rectal dry cough, loose stool, headache and low-grade temperature with a Tmax of 101. Patient has 2 negative home COVID test before. Patient blood pressure is borderline and with standing he is hypotensive with systolic dropping to his 60s and is dizzy lightheaded. Denies any chest pain or palpitations. Has diarrhea with some nausea but no abdominal pain. 04/29/23 14:04 Patient blood pressure dropped in 60s with standing. He is given fluid bolus, on reevaluation is feeling better. Is given Tylenol and Toradol for symptomatic relief. Work-up showed white count of 10.7, lactate of 2.6 and procalcitonin 1.19, chest x-ray no acute findings, negative troponins but does have UTI. He is given a dose of antibiotics. Patient has negative COVID flu and strep. Charito ent blood pressure is still borderline, will continue with fluids and discussed with hospitalist on-call, reviewed history, work-up and agreed with admission. Work-up and plan discussed with patient who understand and agrees with it. Blood Culture(s) Obtained: Yes Antibiotics given: Yes Discussed with : Other Counseled pt/family regarding: lab results, diagnosis, rad results, smoking cessation Medical Desision Making - Independent Historian Additional History obtained from: Mother - Discussion of managment Care discussed with:: hospitalist () Reviewed:: Test results Agreed on:: Treatment plan, place in obs Will see patient: in hospital - Diagnostic Testing Diagnostic test were ordered, analyzed, and reviewed by me: Yes Radiological Interpretation: Reviewed by me - Risk of complications The pt has a high risk of morbidity or mortality based on: Decision regarding hospitilization or escalation of hosp level of care - Departure Departure Disposition: Observation Clinical Impression: UTI (urinary tract infection), Sepsis, Orthostatic hypotension Condition: Stable Critical Care Time: No Referrals: JULITO CASH MD [Primary Care Provider] - Follow up/PCP as directed
[2023-04-29 11:21] LABS: Absolute Neutrophil Ct (ANC) 8.32 x10^3/uL (1.4-6.9); BASOPHIL % 0.3 % (0.0-0.4); Basophil (Absolute #) 0.03 x10^3/uL (0-0.4); Eosinophil % 0.3 % (0.00-5.0); Eosinophil (Absolute #) 0.03 x10^3/uL (0-0.5); Hematocrit 44.1 % (42-50); Hemoglobin 14.9 g/dL (12.5-18.0); IMMATURE GRAN # 0.03 x10^3u/L (0.00-0.03); IMMATURE GRAN % 0.3 % (0.00-0.4); Lymphocyte (Absolute #) 0.81 x10^3/uL (1.0-4.6); Lymphocytes % 7.6 % (24.0-44.0); Mean Cell Volume 90.2 fL (78-100); Mean Corpuscular Hemoglobin 30.5 pg (26-32); Mean Corpuscular Hgb Concent. 33.8 g/dL (32-36); Mean Platelet Volume 9.2 fL (7.5-11.0); Monocyte (Absolute #) 1.45 x10^3/uL (0.0-1.3); Monocytes % 13.6 % (0.0-12.0); Neutrophil % 77.9 % (36.0-66.0); Platelet Count 240 x10^3/uL (150-450); Red Blood Count 4.89 x10^6/uL (4.1-5.6); Red Cell Distribution Width 12.4 % (11.5-14.0); White Blood Count 10.7 x10^3/uL (4.0-10.5)
[2023-04-29 11:38] LABS: ALBUMIN 3.7 g/dL (3.5-5.0); ALKALINE PHOSPHATASE 62 U/L (38-126); ANION GAP 14.8 MEQ/L (5-15); BLOOD UREA NITROGEN 8 mg/dL (9-20); CHLORIDE 98 mmol/L (98-107); Carbon Dioxide 20 mmol/L (22-30); Creatinine 1 0.99 mg/dL (0.66-1.25); EST GLOMERULAR FILTRATION RATE > 60.0 ML/MIN; Glucose 208 mg/dL (74-106); LIPASE 45 U/L (23-300); SGOT/AST 30 U/L (17-59); SGPT/ALT 24 U/L (0-50); SODIUM 130 mmol/L (137-145); Total Protein 6.3 g/dL (6.3-8.2)
[2023-04-29 11:50] LABS: Group A Strep NOT DETECTED (NEGATIVE)
[2023-04-29] MEDS ORDERED: Klor Con PO ONE ×2 (11:52→11:55)
--- NOTE | 2023-04-29 11:54 | XRAY ---
Indication: Cough. Comparison: April 17, 2022 Portable chest inflated and is now clear. Heart not enlarged. Bony thorax intact again with minimal degenerative changes, old bilateral rib fractures, and partially visualized cervical fusion hardware. Impression: Nonacute chest with chronic bony findings.
[2023-04-29 12:00] LABS: INFLUENZA A NEGATIVE (NEGATIVE); INFLUENZA B NEGATIVE (NEGATIVE); RESPIRATORY SYNCTIAL VIRUS NEGATIVE (NEGATIVE); SARS-CoV-2 Xpert Express NEGATIVE (NEGATIVE)
[2023-04-29 12:09] LABS: PROCALCITONIN 0.19 ng/mL (0.030-0.080); TSH, 3RD Generation 0.647 mIU/L (0.47-4.68)
[2023-04-29 12:18] LABS: Appearance Cloudy (Clear); Bilirubin Negative (Negative); Blood Trace (Negative); Glucose, Urine Negative (Negative); Ketones Negative (Negative); Leukocyte Esterase Large (Negative); Nitrite Negative (Negative); Ph 6.5 (4.6-8.0); Protein,Urine Dip 30 (Negative); Urobilinogen 0.2 mg/dL (0.2)
[2023-04-29] MEDS ORDERED: Zithromax 500 MG/ 250 ML NaCl Premix 500 MG/250 ML IVPB IV STA (12:55)
[2023-04-29] MEDS ORDERED: ROCEPHIN 2 Gm-D5w 50ML BAG** 2 G/50 ML IVPB IV STA (12:55)
[2023-04-29 12:57] LABS: ADD URINE CULTURE? YES (NO); Bacteria Many /HPF (None Seen); Epithelial Cells None Seen /HPF (None Seen); WBC 21-50 /HPF (0-5)
[2023-04-29] MEDS ORDERED: ROCEPHIN 2 Gm-D5w 50ML BAG** 2 G/50 ML IVPB IV ONE (12:58)
[2023-04-29] MEDS ORDERED: TORAdol 30 mg Injection IM ONE (13:04)
[2023-04-29] MEDS ORDERED: TORAdol 30 mg Injection ONE (13:10)
[2023-04-29] MEDS ORDERED: Zithromax 500 MG/ 250 ML NaCl Premix 500 MG/250 ML IVPB IV ONE (13:10)
[2023-04-29] MEDS ORDERED: DUONEB 0.5-3 MG/3 ml Neb IH PRN (15:43)
[2023-04-29] MEDS ORDERED: TYLENOL 325 MG PO PRN (15:43)
--- NOTE | 2023-04-29 15:52 | PCM.HP ---
History of Present Illness - Chief Complaint Date: 04/29/23 History of Present Illness: Mr. Torres is a 53 year old male, patient of Dr. Suarez, with a pmhx of HTN, hypothyroidism, COPD, OA, GERD, anxiety/depression, melanoma, NHL(7 years ago), Bladder/prostate cancer( s/p resection/prostatectomy 04/01) with permanent urostomy who presented to ED 04/29/23 with complaints of generalized body aches, lethargy, SOB, dry cough, diarrhea, headache, and fever (TMAX 100.8). Patient was recently diagnosed with COVID 04/14/23 and treated with paxlovid. He states he was feeling better but on 04/26/23 he started feeling bad again. He is having greater than four episodes of diarrhea daily. He did have a recent UTI in January which grew pseudomonas on the culture. Patient states he initially received a shot of rocephin in ER, but was later called to start an antibiotic but he is unsure the name. Urostomy with drain bag, he does not self-cath. In ER patient afebrile, normotensive, and spo2 @ 99% on RA. Patient did experience an episode of orthostatic hypotension with BP dropping to 66/40, but recovered with IVF bolus. CXR negative for acute cardiopulmonary etiologies. Labs significant for mildly elevated wbc at 1.7, hyponatremia with na at 130, hypokalemia with K+ at 3.0, lactic acid at 2.6, procal at 0.190, ua suspicious for infection. Respiratory viral panel and group A strep negative. Patient treated with IVF, potassium, ceftriaxone, and azithromycin. PCP: [facility]: Flynn/ Viviana ([facility]) Medications & Allergies Home Medications: Home Medication List Levothyroxine Sodium [Synthroid] 137 mcg PO DAILY 09/19/15 [History Confirmed 04/29/23] Venlafaxine HCl [Effexor] 150 mg PO DAILY 09/19/15 [History Confirmed 04/29/23] Lisinopril 10 mg [Zestril 10 MG] 20 mg PO DAILY 07/11/16 [History Confirmed 04/29/23] Carvedilol 12.5 mg [Coreg 12.5 mg] 12.5 mg PO BID 01/14/23 [History Confirmed 04/29/23] Allergies/Adverse Reactions: Allergies Allergy/AdvReac Type Severity Reaction Status Date / Time morphine Allergy Intermediate anger Verified 04/14/23 14:55 - Past Medical History Past Medical History: Yes Neurological History: TIA ENT History: Cataracts Cardiac History: Hypertension Respiratory History: COPD, Pulmonary Embolism Endocrine Medical History: Hypothyroidism Musculoskelatal History: Arthritis, Fractures GI Medical History: GERD History: Bladder Cancer Pyscho-Social History: Anxiety, Depression Male Reproductive Disorders: Prostate Cancer Comment: L KNEE MULTIPLE SURGERIES, R KNEE SURGERY; BILATERAL SHOULDER LABRAL REPAIRS. non hodgkins lymphoma. melanoma left ear, NECK/BACK FUSED - Past Surgical History Past Surgical History: Yes Neuro Surgical History: No Pertinent History Cardiac History: Cardiac Catheterization Respiratory Surgery: No Pertinent History GI Surgical History: Other Genitourinary Surgical Hx: No Pertinent History Musculskeletal Surgical Hx: Orthopedic Surgery Male Surgical History: No Pertinent History Other Surgical History: bladder removed, prostate removed, and 19 lymph nodes removed 04/02 - Social History Smoking Status: Current every day smoker How long have you smoked: 25 years Exposure to second hand smoke: No Alcohol: Occasionally Drug Use: none Significant Family History: no pertinent family hx - Physical Exam Vital Signs: Vital Signs - 24 hr Temp Pulse Resp BP BP Pulse Ox 04/29/23 14:19 98.7 F 68 18 93/73 99 04/29/23 14:07 98 04/29/23 13:00 73 18 96/68 97 04/29/23 12:50 64 25 H 94/65 94 L 04/29/23 12:40 66 20 97/64 96 04/29/23 12:30 65 21 93/68 96 04/29/23 12:20 65 21 99/70 93 L 04/29/23 12:10 65 24 98/71 94 L 04/29/23 12:00 69 24 97/64 96 04/29/23 11:50 67 22 90/68 96 04/29/23 11:40 68 21 94/68 96 04/29/23 11:30 69 21 92/60 96 04/29/23 11:20 71 22 85/64 95 04/29/23 11:10 76 22 76/54 04/29/23 11:09 79 26 H 84/57 91 L 04/29/23 10:59 78 25 H 66/40 78 L 04/29/23 10:57 80 20 82/59 99 04/29/23 10:56 82 23 78/60 98 04/29/23 10:55 83 24 84/59 97 04/29/23 10:50 78 21 78/61 97 04/29/23 10:40 76 27 H 92/67 98 04/29/23 10:30 76 22 93/59 96 04/29/23 10:28 97.5 F 79 22 100/65 98 Results - Labs Lab/Micro Results: Lab Results-Last 24 Hours 04/29/23 04/29/23 04/29/23 Range/Units 11:10 11:11 11:11 WBC 10.7 H (4.0-10.5) x10^3/uL RBC 4.89 (4.1-5.6) x10^6/uL Hgb 14.9 (12.5-18.0) g/dL Hct 44.1 (42-50) % MCV 90.2 (78-100) fL MCH 30.5 (26-32) pg MCHC 33.8 (32-36) g/dL RDW 12.4 (11.5-14.0) % Plt Count 240 (150-450) x10^3/uL MPV 9.2 (7.5-11.0) fL Gran % 77.9 H (36.0-66.0) % Immature Gran % (Auto) 0.3 (0.00-0.4) % Nucleat RBC Rel Count 0.0 (0.00-0.1) % Eos # (Auto) 0.03 (0-0.5) x10^3/uL Immature Gran # (Auto) 0.03 (0.00-0.03) x10^3u/L Absolute Lymphs (auto) 0.81 L (1.0-4.6) x10^3/uL Absolute Monos (auto) 1.45 H (0.0-1.3) x10^3/uL Absolute Nucleated RBC 0.00 (0.00-0.01) x10^3u/L Lymphocytes % 7.6 L (24.0-44.0) % Monocytes % 13.6 H (0.0-12.0) % Eosinophils % 0.3 (0.00-5.0) % Basophils % 0.3 (0.0-0.4) % Absolute Granulocytes 8.32 H (1.4-6.9) x10^3/uL Basophils # 0.03 (0-0.4) x10^3/uL Sodium (137-145) mmol/L Potassium (3.5-5.1) mmol/L Chloride (98-107) mmol/L Carbon Dioxide (22-30) mmol/L Anion Gap (5-15) MEQ/L BUN (9-20) mg/dL Creatinine (0.66-1.25) mg/dL Estimated GFR ML/MIN Glucose (74-106) mg/dL Lactic Acid 2.6 H (0.4-2.0) Calcium (8.4-10.2) mg/dL Magnesium (1.6-2.3) mg/dL Total Bilirubin (0.2-1.3) mg/dL AST (17-59) U/L ALT (0-50) U/L Alkaline Phosphatase (38-126) U/L Troponin I (0.000-0.034) ng/mL Serum Total Protein (6.3-8.2) g/dL Albumin (3.5-5.0) g/dL Lipase (23-300) U/L Procalcitonin (0.030-0.080) ng/mL TSH 3rd Generation (0.47-4.68) mIU/L Urine Color (Yellow) Urine Appearance (Clear) Urine pH (4.6-8.0) Ur Specific [place] (1.005-1.030) Urine Protein (Negative) Urine Glucose (UA) (Negative) mg/dL Urine Ketones (Negative) Urine Blood (Negative) Urine Nitrite (Negative) Urine Bilirubin (Negative) Urine Urobilinogen (0.2) mg/dL Ur Leukocyte Esterase (Negative) U Hyaline Cast (Auto) (0-2) /LPF Urine Microscopic RBC (0-5) /HPF Urine Microscopic WBC (0-5) /HPF Ur Epithelial Cells (None Seen) /HPF Urine Bacteria (None Seen) /HPF Urine Culture Reflexed (NO) Influenza Type A Ag NEGATIVE (NEGATIVE) Influenza Type B Ag NEGATIVE (NEGATIVE) RSV (PCR) NEGATIVE (NEGATIVE) SARS-CoV-2 (PCR) NEGATIVE (NEGATIVE) Group A Strep Antibody NOT DETECTED (NEGATIVE) 04/29/23 04/29/23 04/29/23 Range/Units 11:22 11:22 11:22 WBC (4.0-10.5) x10^3/uL RBC (4.1-5.6) x10^6/uL Hgb (12.5-18.0) g/dL Hct (42-50) % MCV (78-100) fL MCH (26-32) pg MCHC (32-36) g/dL RDW (11.5-14.0) % Plt Count (150-450) x10^3/uL MPV (7.5-11.0) fL Gran % (36.0-66.0) % Immature Gran % (Auto) (0.00-0.4) % Nucleat RBC Rel Count (0.00-0.1) % Eos # (Auto) (0-0.5) x10^3/uL Immature Gran # (Auto) (0.00-0.03) x10^3u/L Absolute Lymphs (auto) (1.0-4.6) x10^3/uL Absolute Monos (auto) (0.0-1.3) x10^3/uL Absolute Nucleated RBC (0.00-0.01) x10^3u/L Lymphocytes % (24.0-44.0) % Monocytes % (0.0-12.0) % Eosinophils % (0.00-5.0) % Basophils % (0.0-0.4) % Absolute Granulocytes (1.4-6.9) x10^3/uL Basophils # (0-0.4) x10^3/uL Sodium 130 L (137-145) mmol/L Potassium 3.0 L* (3.5-5.1) mmol/L Chloride 98 (98-107) mmol/L Carbon Dioxide 20 L (22-30) mmol/L Anion Gap 14.8 (5-15) MEQ/L BUN 8 L (9-20) mg/dL Creatinine 0.99 (0.66-1.25) mg/dL Estimated GFR > 60.0 ML/MIN Glucose 208 H (74-106) mg/dL Lactic Acid (0.4-2.0) Calcium 9.0 (8.4-10.2) mg/dL Magnesium 2.0 (1.6-2.3) mg/dL Total Bilirubin 0.60 (0.2-1.3) mg/dL AST 30 (17-59) U/L ALT 24 (0-50) U/L Alkaline Phosphatase 62 (38-126) U/L Troponin I < 0.012 (0.000-0.034) ng/mL Serum Total Protein 6.3 (6.3-8.2) g/dL Albumin 3.7 (3.5-5.0) g/dL Lipase 45 (23-300) U/L Procalcitonin 0.190 H (0.030-0.080) ng/mL TSH 3rd Generation 0.647 (0.47-4.68) mIU/L Urine Color (Yellow) Urine Appearance (Clear) Urine pH (4.6-8.0) Ur Specific [place] (1.005-1.030) Urine Protein (Negative) Urine Glucose (UA) (Negative) mg/dL Urine Ketones (Negative) Urine Blood (Negative) Urine Nitrite (Negative) Urine Bilirubin (Negative) Urine Urobilinogen (0.2) mg/dL Ur Leukocyte Esterase (Negative) U Hyaline Cast (Auto) (0-2) /LPF Urine Microscopic RBC (0-5) /HPF Urine Microscopic WBC (0-5) /HPF Ur Epithelial Cells (None Seen) /HPF Urine Bacteria (None Seen) /HPF Urine Culture Reflexed (NO) Influenza Type A Ag (NEGATIVE) Influenza Type B Ag (NEGATIVE) RSV (PCR) (NEGATIVE) SARS-CoV-2 (PCR) (NEGATIVE) Group A Strep Antibody (NEGATIVE) 04/29/23 04/29/23 Range/Units 12:01 15:29 WBC (4.0-10.5) x10^3/uL RBC (4.1-5.6) x10^6/uL Hgb (12.5-18.0) g/dL Hct (42-50) % MCV (78-100) fL MCH (26-32) pg MCHC (32-36) g/dL RDW (11.5-14.0) % Plt Count (150-450) x10^3/uL MPV (7.5-11.0) fL Gran % (36.0-66.0) % Immature Gran % (Auto) (0.00-0.4) % Nucleat RBC Rel Count (0.00-0.1) % Eos # (Auto) (0-0.5) x10^3/uL Immature Gran # (Auto) (0.00-0.03) x10^3u/L Absolute Lymphs (auto) (1.0-4.6) x10^3/uL Absolute Monos (auto) (0.0-1.3) x10^3/uL Absolute Nucleated RBC (0.00-0.01) x10^3u/L Lymphocytes % (24.0-44.0) % Monocytes % (0.0-12.0) % Eosinophils % (0.00-5.0) % Basophils % (0.0-0.4) % Absolute Granulocytes (1.4-6.9) x10^3/uL Basophils # (0-0.4) x10^3/uL Sodium (137-145) mmol/L Potassium (3.5-5.1) mmol/L Chloride (98-107) mmol/L Carbon Dioxide (22-30) mmol/L Anion Gap (5-15) MEQ/L BUN (9-20) mg/dL Creatinine (0.66-1.25) mg/dL Estimated GFR ML/MIN Glucose (74-106) mg/dL Lactic Acid 0.8 (0.4-2.0) Calcium (8.4-10.2) mg/dL Magnesium (1.6-2.3) mg/dL Total Bilirubin (0.2-1.3) mg/dL AST (17-59) U/L ALT (0-50) U/L Alkaline Phosphatase (38-126) U/L Troponin I (0.000-0.034) ng/mL Serum Total Protein (6.3-8.2) g/dL Albumin (3.5-5.0) g/dL Lipase (23-300) U/L Procalcitonin (0.030-0.080) ng/mL TSH 3rd Generation (0.47-4.68) mIU/L Urine Color Yellow (Yellow) Urine Appearance Cloudy A (Clear) Urine pH 6.5 (4.6-8.0) Ur Specific [place] 1.010 (1.005-1.030) Urine Protein 30 (Negative) Urine Glucose (UA) Negative (Negative) mg/dL Urine Ketones Negative (Negative) Urine Blood Trace (Negative) Urine Nitrite Negative (Negative) Urine Bilirubin Negative (Negative) Urine Urobilinogen 0.2 (0.2) mg/dL Ur Leukocyte Esterase Large A (Negative) U Hyaline Cast (Auto) 6-10 A (0-2) /LPF Urine Microscopic RBC 3-5 (0-5) /HPF Urine Microscopic WBC 21-50 A (0-5) /HPF Ur Epithelial Cells None Seen (None Seen) /HPF Urine Bacteria Many A (None Seen) /HPF Urine Culture Reflexed YES (NO) Influenza Type A Ag (NEGATIVE) Influenza Type B Ag (NEGATIVE) RSV (PCR) (NEGATIVE) SARS-CoV-2 (PCR) (NEGATIVE) Group A Strep Antibody (NEGATIVE) - Radiology Impressions Radiology Exams & Impressions: Radiology Procedures Category Date Time Status CHEST 1 VIEW (PORTABLE) Stat Exams 04/29/23 10:46 Completed - Other Procedures and Tests Respiratory Therapy 04/29/23 15:22 Respiratory Therapy Consult ONCE Assessment/Plan (1) UTI (urinary tract infection) Current Visit: Yes Status: Acute Assessment & Plan: -Recent UTI in 01/31 with pseudomonas -Possible UTI, UA suggestive of infection. Urine CX pending. Will start Ceftriaxone 1g Q24H empirically. Will monitor closely. Code(s): N39.0 - URINARY TRACT INFECTION, SITE NOT SPECIFIED (2) Lactic acidosis Current Visit: Yes Status: Acute Assessment & Plan: -Most likely secondary to UTI, Patient received 1L fluid bolus in ER, will continue to trend -Blood cultures/urine cuture pending -Procal elevated Code(s): E87.20 - ACIDOSIS, UNSPECIFIED (3) Orthostatic hypotension Current Visit: Yes Status: Acute Assessment & Plan: -Most likely secondary to hypovolemia, improved with IVF bolus -repeat orthostatic vitals in the morning -Monitor BP closely Code(s): I95.1 - ORTHOSTATIC HYPOTENSION (4) Hypokalemia Current Visit: Yes Status: Acute Assessment & Plan: -Replenished in ER with 40meq, will continue potassium protocol, with labs q4h, replenish as appropriate Code(s): E87.6 - HYPOKALEMIA (5) Hyponatremia Current Visit: Yes Status: Acute Assessment & Plan: -mild, hyovolemic, most likely secondary to GI loss -Monitor renal/lytes closely -Continue IVF -TSH WNL Code(s): E87.1 - HYPO-OSMOLALITY AND HYPONATREMIA (6) Diarrhea Current Visit: Yes Status: Acute Assessment & Plan: -Greater than 4 episodes per day -Will order stools for cdiff, culture, O&P, giardia Code(s): R19.7 - DIARRHEA, UNSPECIFIED (7) History of prostate cancer Current Visit: Yes Status: Acute Assessment & Plan: -S/p prostatectomy 04/01 Code(s): Z85.46 - PERSONAL HISTORY OF MALIGNANT NEOPLASM OF PROSTATE (8) History of bladder cancer Current Visit: Yes Status: Acute Assessment & Plan: -s/p resection w/ permanent urostomy 04/01 Code(s): Z85.51 - PERSONAL HISTORY OF MALIGNANT NEOPLASM OF BLADDER (9) History of non-Hodgkin's lymphoma Current Visit: Yes Status: Acute Assessment & Plan: -noted, adds complexity Code(s): Z85.72 - PERSONAL HISTORY OF NON-HODGKIN LYMPHOMAS (10) Hypertension Current Visit: Yes Status: Acute Assessment & Plan: -currently with hypotension, will hold bp meds for now Code(s): I10 - ESSENTIAL (PRIMARY) HYPERTENSION (11) Hypothyroidism Current Visit: Yes Status: Acute Assessment & Plan: -continue home meds Code(s): E03.9 - HYPOTHYROIDISM, UNSPECIFIED
[2023-04-29] MEDS: Sodium Chloride 0.9% 1000 ML 1,000 ML IV SCH ×2 (16:18→23:00)
[2023-04-29] MEDS: Klor Con PO SCH ×4 (16:53→23:00)
[2023-04-29] MEDS: HYDROCODONE-ACETAMIN 10-325 MG PO PRN ×2 (16:53→20:51)
[2023-04-29] MEDS: SYNTHROID 112 MCG PO SCH (17:28)
[2023-04-29] MEDS: SYNTHROID 25 MCG PO SCH (17:29)
[2023-04-29] MEDS: Effexor XR 75 MG PO SCH (17:29)
[2023-04-30] MEDS: HYDROCODONE-ACETAMIN 10-325 MG PO PRN ×5 (02:22→20:24)
[2023-04-30 05:01] LABS: Absolute Neutrophil Ct (ANC) 5.76 x10^3/uL (1.4-6.9); BASOPHIL % 0.6 % (0.0-0.4); Basophil (Absolute #) 0.05 x10^3/uL (0-0.4); Eosinophil % 2.2 % (0.00-5.0); Eosinophil (Absolute #) 0.18 x10^3/uL (0-0.5); Hematocrit 40.1 % (42-50); Hemoglobin 13.5 g/dL (12.5-18.0); IMMATURE GRAN # 0.04 x10^3u/L (0.00-0.03); IMMATURE GRAN % 0.5 % (0.00-0.4); Lymphocyte (Absolute #) 0.86 x10^3/uL (1.0-4.6); Lymphocytes % 10.4 % (24.0-44.0); Mean Cell Volume 91.1 fL (78-100); Mean Corpuscular Hemoglobin 30.7 pg (26-32); Mean Corpuscular Hgb Concent. 33.7 g/dL (32-36); Mean Platelet Volume 8.9 fL (7.5-11.0); Monocyte (Absolute #) 1.36 x10^3/uL (0.0-1.3); Monocytes % 16.5 % (0.0-12.0); Neutrophil % 69.8 % (36.0-66.0); Platelet Count 224 x10^3/uL (150-450); Red Cell Distribution Width 13.2 % (11.5-14.0); White Blood Count 8.3 x10^3/uL (4.0-10.5)
[2023-04-30 05:25] LABS: ALBUMIN 3.2 g/dL (3.5-5.0); ALKALINE PHOSPHATASE 60 U/L (38-126); ANION GAP 10.7 MEQ/L (5-15); BLOOD UREA NITROGEN 10 mg/dL (9-20); CHLORIDE 108 mmol/L (98-107); Calcium 7.7 mg/dL (8.4-10.2); Carbon Dioxide 18 mmol/L (22-30); Creatinine 1 0.91 mg/dL (0.66-1.25); EST GLOMERULAR FILTRATION RATE > 60.0 ML/MIN; Glucose 95 mg/dL (74-106); Potassium 3.9 mmol/L (3.5-5.1); SGOT/AST 24 U/L (17-59); SGPT/ALT 21 U/L (0-50); SODIUM 133 mmol/L (137-145)
--- NOTE | 2023-04-30 05:43 | PCM.NOTE ---
Date and Time: 04/30/23 0538 Subjective Assessment: Mr. Torres is a 53 year old male, patient of Dr. Suarez, with a pmhx of HTN, hypothyroidism, COPD, OA, GERD, anxiety/depression, melanoma, NHL(7 years ago), Bladder/prostate cancer( s/p resection/prostatectomy 04/01) with permanent urostomy who presented to ED 04/29/23 with complaints of generalized body aches, lethargy, SOB, dry cough, diarrhea, headache, and fever (TMAX 100.8) admitted for UTI, currently being treated with Rocephin. Urine culture growing gram- organism. Endorses improvement of shortness of breath, no diarrhea episodes since admission, pain continues around stoma as well as generalized body aches. Discussed improvement of labs and Ucult pre-tsang. Plan to continue rocephin for now as well as continued pain management. - Review of Systems Constitutional: Fatigue, Weakness Eyes: No Symptoms Ears, Nose, & Throat: No Symptoms Respiratory: Cough, Short Of Breath, Wheezing Cardiac: No Symptoms Abdominal/Gastrointestinal: Abdominal Pain (at stoma site) Genitourinary Symptoms: No Symptoms Musculoskeletal: Other (body aches) Skin: No Symptoms Neurological: No Symptoms Psychological: No Symptoms Endocrine: No Symptoms Objective Exam General Appearance: no apparent distress Neurologic Exam: alert, oriented x 3, cooperative Skin Exam: normal color Eye Exam: PERRL Ears, Nose, Throat Exam: normal ENT inspection Neck Exam: normal inspection Respiratory Exam: wheezing Cardiovascular Exam: regular rate/rhythm, normal heart sounds Gastrointestinal/Abdomen Exam: soft, normal bowel sounds Extremity Exam: normal inspection Back Exam: other (scar noted to posterior neck) OBJECTIVE DATA Vital Signs: Vital Signs - 24 hr Temp Pulse Resp BP BP Pulse Ox 04/30/23 04:00 97.7 F 62 16 131/84 93 L 04/29/23 23:40 98.0 F 57 L 17 120/75 91 L 04/29/23 19:41 98.8 F 65 16 88/51 92 L 04/29/23 19:13 58 L 18 95 04/29/23 15:56 74 18 96 04/29/23 15:35 97.3 F 59 L 18 117/80 96 04/29/23 14:19 98.7 F 68 18 93/73 99 04/29/23 14:07 98 04/29/23 13:00 73 18 96/68 97 04/29/23 12:50 64 25 H 94/65 94 L 04/29/23 12:40 66 20 97/64 96 04/29/23 12:30 65 21 93/68 96 04/29/23 12:20 65 21 99/70 93 L 04/29/23 12:10 65 24 98/71 94 L 04/29/23 12:00 69 24 97/64 96 04/29/23 11:50 67 22 90/68 96 04/29/23 11:40 68 21 94/68 96 04/29/23 11:30 69 21 92/60 96 04/29/23 11:20 71 22 85/64 95 04/29/23 11:10 76 22 76/54 04/29/23 11:09 79 26 H 84/57 91 L 04/29/23 10:59 78 25 H 66/40 78 L 04/29/23 10:57 80 20 82/59 99 04/29/23 10:56 82 23 78/60 98 04/29/23 10:55 83 24 84/59 97 04/29/23 10:50 78 21 78/61 97 04/29/23 10:40 76 27 H 92/67 98 04/29/23 10:30 76 22 93/59 96 04/29/23 10:28 97.5 F 79 22 100/65 98 Pain Assessment - Last Documented Pain Intensity 5 Pain Scale Used [facility] Intake and Output: Intake & Output 04/27/23 04/28/23 04/29/23 04/30/23 11:59 11:59 11:59 11:59 Intake Total 2111 Output Total 600 Balance 1511 Weight 102.8 kg 97.3 kg Lab Results: Lab Results-Last 24 Hours 04/29/23 04/29/23 04/29/23 Range/Units 11:10 11:11 11:11 WBC 10.7 H (4.0-10.5) x10^3/uL RBC 4.89 (4.1-5.6) x10^6/uL Hgb 14.9 (12.5-18.0) g/dL Hct 44.1 (42-50) % MCV 90.2 (78-100) fL MCH 30.5 (26-32) pg MCHC 33.8 (32-36) g/dL RDW 12.4 (11.5-14.0) % Plt Count 240 (150-450) x10^3/uL MPV 9.2 (7.5-11.0) fL Gran % 77.9 H (36.0-66.0) % Immature Gran % (Auto) 0.3 (0.00-0.4) % Nucleat RBC Rel Count 0.0 (0.00-0.1) % Eos # (Auto) 0.03 (0-0.5) x10^3/uL Immature Gran # (Auto) 0.03 (0.00-0.03) x10^3u/L Absolute Lymphs (auto) 0.81 L (1.0-4.6) x10^3/uL Absolute Monos (auto) 1.45 H (0.0-1.3) x10^3/uL Absolute Nucleated RBC 0.00 (0.00-0.01) x10^3u/L Lymphocytes % 7.6 L (24.0-44.0) % Monocytes % 13.6 H (0.0-12.0) % Eosinophils % 0.3 (0.00-5.0) % Basophils % 0.3 (0.0-0.4) % Absolute Granulocytes 8.32 H (1.4-6.9) x10^3/uL Basophils # 0.03 (0-0.4) x10^3/uL Sodium (137-145) mmol/L Potassium (3.5-5.1) mmol/L Chloride (98-107) mmol/L Carbon Dioxide (22-30) mmol/L Anion Gap (5-15) MEQ/L BUN (9-20) mg/dL Creatinine (0.66-1.25) mg/dL Estimated GFR ML/MIN Glucose (74-106) mg/dL Lactic Acid 2.6 H (0.4-2.0) Calcium (8.4-10.2) mg/dL Magnesium (1.6-2.3) mg/dL Total Bilirubin (0.2-1.3) mg/dL AST (17-59) U/L ALT (0-50) U/L Alkaline Phosphatase (38-126) U/L Troponin I (0.000-0.034) ng/mL Serum Total Protein (6.3-8.2) g/dL Albumin (3.5-5.0) g/dL Lipase (23-300) U/L Procalcitonin (0.030-0.080) ng/mL TSH 3rd Generation (0.47-4.68) mIU/L Urine Color (Yellow) Urine Appearance (Clear) Urine pH (4.6-8.0) Ur Specific Wright (1.005-1.030) Urine Protein (Negative) Urine Glucose (UA) (Negative) mg/dL Urine Ketones (Negative) Urine Blood (Negative) Urine Nitrite (Negative) Urine Bilirubin (Negative) Urine Urobilinogen (0.2) mg/dL Ur Leukocyte Esterase (Negative) U Hyaline Cast (Auto) (0-2) /LPF Urine Microscopic RBC (0-5) /HPF Urine Microscopic WBC (0-5) /HPF Ur Epithelial Cells (None Seen) /HPF Urine Bacteria (None Seen) /HPF Urine Culture Reflexed (NO) Influenza Type A Ag NEGATIVE (NEGATIVE) Influenza Type B Ag NEGATIVE (NEGATIVE) RSV (PCR) NEGATIVE (NEGATIVE) SARS-CoV-2 (PCR) NEGATIVE (NEGATIVE) Group A Strep Antibody NOT DETECTED (NEGATIVE) 04/29/23 04/29/23 04/29/23 Range/Units 11:22 11:22 11:22 WBC (4.0-10.5) x10^3/uL RBC (4.1-5.6) x10^6/uL Hgb (12.5-18.0) g/dL Hct (42-50) % MCV (78-100) fL MCH (26-32) pg MCHC (32-36) g/dL RDW (11.5-14.0) % Plt Count (150-450) x10^3/uL MPV (7.5-11.0) fL Gran % (36.0-66.0) % Immature Gran % (Auto) (0.00-0.4) % Nucleat RBC Rel Count (0.00-0.1) % Eos # (Auto) (0-0.5) x10^3/uL Immature Gran # (Auto) (0.00-0.03) x10^3u/L Absolute Lymphs (auto) (1.0-4.6) x10^3/uL Absolute Monos (auto) (0.0-1.3) x10^3/uL Absolute Nucleated RBC (0.00-0.01) x10^3u/L Lymphocytes % (24.0-44.0) % Monocytes % (0.0-12.0) % Eosinophils % (0.00-5.0) % Basophils % (0.0-0.4) % Absolute Granulocytes (1.4-6.9) x10^3/uL Basophils # (0-0.4) x10^3/uL Sodium 130 L (137-145) mmol/L Potassium 3.0 L* (3.5-5.1) mmol/L Chloride 98 (98-107) mmol/L Carbon Dioxide 20 L (22-30) mmol/L Anion Gap 14.8 (5-15) MEQ/L BUN 8 L (9-20) mg/dL Creatinine 0.99 (0.66-1.25) mg/dL Estimated GFR > 60.0 ML/MIN Glucose 208 H (74-106) mg/dL Lactic Acid (0.4-2.0) Calcium 9.0 (8.4-10.2) mg/dL Magnesium 2.0 (1.6-2.3) mg/dL Total Bilirubin 0.60 (0.2-1.3) mg/dL AST 30 (17-59) U/L ALT 24 (0-50) U/L Alkaline Phosphatase 62 (38-126) U/L Troponin I < 0.012 (0.000-0.034) ng/mL Serum Total Protein 6.3 (6.3-8.2) g/dL Albumin 3.7 (3.5-5.0) g/dL Lipase 45 (23-300) U/L Procalcitonin 0.190 H (0.030-0.080) ng/mL TSH 3rd Generation 0.647 (0.47-4.68) mIU/L Urine Color (Yellow) Urine Appearance (Clear) Urine pH (4.6-8.0) Ur Specific Wright (1.005-1.030) Urine Protein (Negative) Urine Glucose (UA) (Negative) mg/dL Urine Ketones (Negative) Urine Blood (Negative) Urine Nitrite (Negative) Urine Bilirubin (Negative) Urine Urobilinogen (0.2) mg/dL Ur Leukocyte Esterase (Negative) U Hyaline Cast (Auto) (0-2) /LPF Urine Microscopic RBC (0-5) /HPF Urine Microscopic WBC (0-5) /HPF Ur Epithelial Cells (None Seen) /HPF Urine Bacteria (None Seen) /HPF Urine Culture Reflexed (NO) Influenza Type A Ag (NEGATIVE) Influenza Type B Ag (NEGATIVE) RSV (PCR) (NEGATIVE) SARS-CoV-2 (PCR) (NEGATIVE) Group A Strep Antibody (NEGATIVE) 04/29/23 04/29/23 04/29/23 Range/Units 12:01 15:15 15:15 WBC (4.0-10.5) x10^3/uL RBC (4.1-5.6) x10^6/uL Hgb (12.5-18.0) g/dL Hct (42-50) % MCV (78-100) fL MCH (26-32) pg MCHC (32-36) g/dL RDW (11.5-14.0) % Plt Count (150-450) x10^3/uL MPV (7.5-11.0) fL Gran % (36.0-66.0) % Immature Gran % (Auto) (0.00-0.4) % Nucleat RBC Rel Count (0.00-0.1) % Eos # (Auto) (0-0.5) x10^3/uL Immature Gran # (Auto) (0.00-0.03) x10^3u/L Absolute Lymphs (auto) (1.0-4.6) x10^3/uL Absolute Monos (auto) (0.0-1.3) x10^3/uL Absolute Nucleated RBC (0.00-0.01) x10^3u/L Lymphocytes % (24.0-44.0) % Monocytes % (0.0-12.0) % Eosinophils % (0.00-5.0) % Basophils % (0.0-0.4) % Absolute Granulocytes (1.4-6.9) x10^3/uL Basophils # (0-0.4) x10^3/uL Sodium (137-145) mmol/L Potassium (3.5-5.1) mmol/L Chloride (98-107) mmol/L Carbon Dioxide (22-30) mmol/L Anion Gap (5-15) MEQ/L BUN (9-20) mg/dL Creatinine (0.66-1.25) mg/dL Estimated GFR ML/MIN Glucose (74-106) mg/dL Lactic Acid (0.4-2.0) Calcium (8.4-10.2) mg/dL Magnesium 2.0 (1.6-2.3) mg/dL Total Bilirubin (0.2-1.3) mg/dL AST (17-59) U/L ALT (0-50) U/L Alkaline Phosphatase (38-126) U/L Troponin I < 0.012 (0.000-0.034) ng/mL Serum Total Protein (6.3-8.2) g/dL Albumin (3.5-5.0) g/dL Lipase (23-300) U/L Procalcitonin (0.030-0.080) ng/mL TSH 3rd Generation (0.47-4.68) mIU/L Urine Color Yellow (Yellow) Urine Appearance Cloudy A (Clear) Urine pH 6.5 (4.6-8.0) Ur Specific Wright 1.010 (1.005-1.030) Urine Protein 30 (Negative) Urine Glucose (UA) Negative (Negative) mg/dL Urine Ketones Negative (Negative) Urine Blood Trace (Negative) Urine Nitrite Negative (Negative) Urine Bilirubin Negative (Negative) Urine Urobilinogen 0.2 (0.2) mg/dL Ur Leukocyte Esterase Large A (Negative) U Hyaline Cast (Auto) 6-10 A (0-2) /LPF Urine Microscopic RBC 3-5 (0-5) /HPF Urine Microscopic WBC 21-50 A (0-5) /HPF Ur Epithelial Cells None Seen (None Seen) /HPF Urine Bacteria Many A (None Seen) /HPF Urine Culture Reflexed YES (NO) Influenza Type A Ag (NEGATIVE) Influenza Type B Ag (NEGATIVE) RSV (PCR) (NEGATIVE) SARS-CoV-2 (PCR) (NEGATIVE) Group A Strep Antibody (NEGATIVE) 04/29/23 04/29/23 04/29/23 Range/Units 15:20 15:29 19:55 WBC (4.0-10.5) x10^3/uL RBC (4.1-5.6) x10^6/uL Hgb (12.5-18.0) g/dL Hct (42-50) % MCV (78-100) fL MCH (26-32) pg MCHC (32-36) g/dL RDW (11.5-14.0) % Plt Count (150-450) x10^3/uL MPV (7.5-11.0) fL Gran % (36.0-66.0) % Immature Gran % (Auto) (0.00-0.4) % Nucleat RBC Rel Count (0.00-0.1) % Eos # (Auto) (0-0.5) x10^3/uL Immature Gran # (Auto) (0.00-0.03) x10^3u/L Absolute Lymphs (auto) (1.0-4.6) x10^3/uL Absolute Monos (auto) (0.0-1.3) x10^3/uL Absolute Nucleated RBC (0.00-0.01) x10^3u/L Lymphocytes % (24.0-44.0) % Monocytes % (0.0-12.0) % Eosinophils % (0.00-5.0) % Basophils % (0.0-0.4) % Absolute Granulocytes (1.4-6.9) x10^3/uL Basophils # (0-0.4) x10^3/uL Sodium (137-145) mmol/L Potassium 3.0 L* (3.5-5.1) mmol/L Chloride (98-107) mmol/L Carbon Dioxide (22-30) mmol/L Anion Gap (5-15) MEQ/L BUN (9-20) mg/dL Creatinine (0.66-1.25) mg/dL Estimated GFR ML/MIN Glucose (74-106) mg/dL Lactic Acid 0.8 (0.4-2.0) Calcium (8.4-10.2) mg/dL Magnesium (1.6-2.3) mg/dL Total Bilirubin (0.2-1.3) mg/dL AST (17-59) U/L ALT (0-50) U/L Alkaline Phosphatase (38-126) U/L Troponin I < 0.012 (0.000-0.034) ng/mL Serum Total Protein (6.3-8.2) g/dL Albumin (3.5-5.0) g/dL Lipase (23-300) U/L Procalcitonin (0.030-0.080) ng/mL TSH 3rd Generation (0.47-4.68) mIU/L Urine Color (Yellow) Urine Appearance (Clear) Urine pH (4.6-8.0) Ur Specific Wright (1.005-1.030) Urine Protein (Negative) Urine Glucose (UA) (Negative) mg/dL Urine Ketones (Negative) Urine Blood (Negative) Urine Nitrite (Negative) Urine Bilirubin (Negative) Urine Urobilinogen (0.2) mg/dL Ur Leukocyte Esterase (Negative) U Hyaline Cast (Auto) (0-2) /LPF Urine Microscopic RBC (0-5) /HPF Urine Microscopic WBC (0-5) /HPF Ur Epithelial Cells (None Seen) /HPF Urine Bacteria (None Seen) /HPF Urine Culture Reflexed (NO) Influenza Type A Ag (NEGATIVE) Influenza Type B Ag (NEGATIVE) RSV (PCR) (NEGATIVE) SARS-CoV-2 (PCR) (NEGATIVE) Group A Strep Antibody (NEGATIVE) 04/29/23 04/30/23 04/30/23 Range/Units 19:55 00:10 04:42 WBC 8.3 (4.0-10.5) x10^3/uL RBC 4.40 (4.1-5.6) x10^6/uL Hgb 13.5 (12.5-18.0) g/dL Hct 40.1 L (42-50) % MCV 91.1 (78-100) fL MCH 30.7 (26-32) pg MCHC 33.7 (32-36) g/dL RDW 13.2 (11.5-14.0) % Plt Count 224 (150-450) x10^3/uL MPV 8.9 (7.5-11.0) fL Gran % 69.8 H (36.0-66.0) % Immature Gran % (Auto) 0.5 H (0.00-0.4) % Nucleat RBC Rel Count 0.0 (0.00-0.1) % Eos # (Auto) 0.18 (0-0.5) x10^3/uL Immature Gran # (Auto) 0.04 H (0.00-0.03) x10^3u/L Absolute Lymphs (auto) 0.86 L (1.0-4.6) x10^3/uL Absolute Monos (auto) 1.36 H (0.0-1.3) x10^3/uL Absolute Nucleated RBC 0.00 (0.00-0.01) x10^3u/L Lymphocytes % 10.4 L (24.0-44.0) % Monocytes % 16.5 H (0.0-12.0) % Eosinophils % 2.2 (0.00-5.0) % Basophils % 0.6 (0.0-0.4) % Absolute Granulocytes 5.76 (1.4-6.9) x10^3/uL Basophils # 0.05 (0-0.4) x10^3/uL Sodium (137-145) mmol/L Potassium 3.0 L* 3.7 D (3.5-5.1) mmol/L Chloride (98-107) mmol/L Carbon Dioxide (22-30) mmol/L Anion Gap (5-15) MEQ/L BUN (9-20) mg/dL Creatinine (0.66-1.25) mg/dL Estimated GFR ML/MIN Glucose (74-106) mg/dL Lactic Acid (0.4-2.0) Calcium (8.4-10.2) mg/dL Magnesium (1.6-2.3) mg/dL Total Bilirubin (0.2-1.3) mg/dL AST (17-59) U/L ALT (0-50) U/L Alkaline Phosphatase (38-126) U/L Troponin I (0.000-0.034) ng/mL Serum Total Protein (6.3-8.2) g/dL Albumin (3.5-5.0) g/dL Lipase (23-300) U/L Procalcitonin (0.030-0.080) ng/mL TSH 3rd Generation (0.47-4.68) mIU/L Urine Color (Yellow) Urine Appearance (Clear) Urine pH (4.6-8.0) Ur Specific Wright (1.005-1.030) Urine Protein (Negative) Urine Glucose (UA) (Negative) mg/dL Urine Ketones (Negative) Urine Blood (Negative) Urine Nitrite (Negative) Urine Bilirubin (Negative) Urine Urobilinogen (0.2) mg/dL Ur Leukocyte Esterase (Negative) U Hyaline Cast (Auto) (0-2) /LPF Urine Microscopic RBC (0-5) /HPF Urine Microscopic WBC (0-5) /HPF Ur Epithelial Cells (None Seen) /HPF Urine Bacteria (None Seen) /HPF Urine Culture Reflexed (NO) Influenza Type A Ag (NEGATIVE) Influenza Type B Ag (NEGATIVE) RSV (PCR) (NEGATIVE) SARS-CoV-2 (PCR) (NEGATIVE) Group A Strep Antibody (NEGATIVE) 04/30/23 04/30/23 04/30/23 Range/Units 04:42 04:42 04:47 WBC (4.0-10.5) x10^3/uL RBC (4.1-5.6) x10^6/uL Hgb (12.5-18.0) g/dL Hct (42-50) % MCV (78-100) fL MCH (26-32) pg MCHC (32-36) g/dL RDW (11.5-14.0) % Plt Count (150-450) x10^3/uL MPV (7.5-11.0) fL Gran % (36.0-66.0) % Immature Gran % (Auto) (0.00-0.4) % Nucleat RBC Rel Count (0.00-0.1) % Eos # (Auto) (0-0.5) x10^3/uL Immature Gran # (Auto) (0.00-0.03) x10^3u/L Absolute Lymphs (auto) (1.0-4.6) x10^3/uL Absolute Monos (auto) (0.0-1.3) x10^3/uL Absolute Nucleated RBC (0.00-0.01) x10^3u/L Lymphocytes % (24.0-44.0) % Monocytes % (0.0-12.0) % Eosinophils % (0.00-5.0) % Basophils % (0.0-0.4) % Absolute Granulocytes (1.4-6.9) x10^3/uL Basophils # (0-0.4) x10^3/uL Sodium 133 L (137-145) mmol/L Potassium 3.9 (3.5-5.1) mmol/L Chloride 108 H (98-107) mmol/L Carbon Dioxide 18 L (22-30) mmol/L Anion Gap 10.7 (5-15) MEQ/L BUN 10 (9-20) mg/dL Creatinine 0.91 (0.66-1.25) mg/dL Estimated GFR > 60.0 ML/MIN Glucose 95 (74-106) mg/dL Lactic Acid 0.7 (0.4-2.0) Calcium 7.7 L (8.4-10.2) mg/dL Magnesium 1.9 (1.6-2.3) mg/dL Total Bilirubin 0.30 (0.2-1.3) mg/dL AST 24 (17-59) U/L ALT 21 (0-50) U/L Alkaline Phosphatase 60 (38-126) U/L Troponin I (0.000-0.034) ng/mL Serum Total Protein 6.0 L (6.3-8.2) g/dL Albumin 3.2 L (3.5-5.0) g/dL Lipase (23-300) U/L Procalcitonin (0.030-0.080) ng/mL TSH 3rd Generation (0.47-4.68) mIU/L Urine Color (Yellow) Urine Appearance (Clear) Urine pH (4.6-8.0) Ur Specific Wright (1.005-1.030) Urine Protein (Negative) Urine Glucose (UA) (Negative) mg/dL Urine Ketones (Negative) Urine Blood (Negative) Urine Nitrite (Negative) Urine Bilirubin (Negative) Urine Urobilinogen (0.2) mg/dL Ur Leukocyte Esterase (Negative) U Hyaline Cast (Auto) (0-2) /LPF Urine Microscopic RBC (0-5) /HPF Urine Microscopic WBC (0-5) /HPF Ur Epithelial Cells (None Seen) /HPF Urine Bacteria (None Seen) /HPF Urine Culture Reflexed (NO) Influenza Type A Ag (NEGATIVE) Influenza Type B Ag (NEGATIVE) RSV (PCR) (NEGATIVE) SARS-CoV-2 (PCR) (NEGATIVE) Group A Strep Antibody (NEGATIVE) Radiology Exams: Radiology Procedures Category Date Time Status CHEST 1 VIEW (PORTABLE) Stat Exams 04/29/23 10:46 Completed Assessment/Plan (1) UTI (urinary tract infection) Current Visit: Yes Status: Acute Assessment & Plan: -Recent UTI in 01/31 with pseudomonas -Possible UTI, UA suggestive of infection. Urine CX pending. Will start Ceftriaxone 1g Q24H empirically. Will monitor closely. 04/30: -Gram - organism on culture, will continue with rocephin for now, follow culture Code(s): N39.0 - URINARY TRACT INFECTION, SITE NOT SPECIFIED (2) Lactic acidosis Current Visit: Yes Status: Acute Assessment & Plan: -Most likely secondary to UTI, Patient received 1L fluid bolus in ER, will continue to trend -Blood cultures/urine cuture pending -Procal elevated 04/30: -LA now wnl Code(s): E87.20 - ACIDOSIS, UNSPECIFIED (3) Orthostatic hypotension Current Visit: Yes Status: Acute Assessment & Plan: -Most likely secondary to hypovolemia, improved with IVF bolus -repeat orthostatic vitals in the morning -Monitor BP closely Code(s): I95.1 - ORTHOSTATIC HYPOTENSION (4) Hypokalemia Current Visit: Yes Status: Acute Assessment & Plan: -Replenished in ER with 40meq, will continue potassium protocol, with labs q4h, replenish as appropriate 04/30: -resolved Code(s): E87.6 - HYPOKALEMIA (5) Hyponatremia Current Visit: Yes Status: Acute Assessment & Plan: -mild, hyovolemic, most likely secondary to GI loss -Monitor renal/lytes closely -Continue IVF -TSH WNL 04/30: -improving, will continue above treatment Code(s): E87.1 - HYPO-OSMOLALITY AND HYPONATREMIA (6) Diarrhea Current Visit: Yes Status: Acute Assessment & Plan: -Greater than 4 episodes per day -Will order stools for cdiff, culture, O&P, giardia 04/30: -cdiff pending, no BM since admission Code(s): R19.7 - DIARRHEA, UNSPECIFIED (7) History of prostate cancer Current Visit: Yes Status: Acute Assessment & Plan: -S/p prostatectomy 04/01 Code(s): Z85.46 - PERSONAL HISTORY OF MALIGNANT NEOPLASM OF PROSTATE (8) History of bladder cancer Current Visit: Yes Status: Acute Assessment & Plan: -s/p resection w/ permanent urostomy 04/01 Code(s): Z85.51 - PERSONAL HISTORY OF MALIGNANT NEOPLASM OF BLADDER (9) History of non-Hodgkin's lymphoma Current Visit: Yes Status: Acute Assessment & Plan: -noted, adds complexity, follows with Dr. Pruett, not in treatment currently Code(s): Z85.72 - PERSONAL HISTORY OF NON-HODGKIN LYMPHOMAS (10) Hypertension Current Visit: Yes Status: Acute Assessment & Plan: -currently with hypotension, will hold bp meds for now Code(s): I10 - ESSENTIAL (PRIMARY) HYPERTENSION (11) Hypothyroidism Current Visit: Yes Status: Acute Assessment & Plan: -continue home meds Code(s): E03.9 - HYPOTHYROIDISM, UNSPECIFIED (12) Acidosis, unspecified Current Visit: Yes Status: Acute Assessment & Plan: -Bicarb levels low, most likely secondary to GI loss, will add bicarb orally Code(s): E87.20 - ACIDOSIS, UNSPECIFIED (13) Genitourinary pain Current Visit: Yes Status: Acute Assessment & Plan: -at stoma site, will continue pain management with diluadid/ [place] Code(s): FFS1430 -
[2023-04-30] MEDS: Sodium Chloride 0.9% 1000 ML 1,000 ML IV SCH ×3 (06:37→21:39)
[2023-04-30] MEDS: Hydromorphone 1 mg/ml Injection IV PRN ×4 (09:41→23:19)
[2023-04-30] MEDS: SYNTHROID 112 MCG PO SCH (09:50)
[2023-04-30] MEDS: SYNTHROID 25 MCG PO SCH (09:50)
[2023-04-30] MEDS: SODIUM BICARBONATE PO SCH ×2 (09:51→21:41)
[2023-04-30] MEDS: Effexor XR 75 MG PO SCH (09:51)
[2023-04-30] MEDS: ROCEPHIN 1 Gm-D5w 50 ml Bag** 1 G/50 ML IVPB IV SCH (09:52)
[2023-05-01] MEDS: HYDROCODONE-ACETAMIN 10-325 MG PO PRN ×3 (00:17→09:03)
[2023-05-01] MEDS: Hydromorphone 1 mg/ml Injection IV PRN ×2 (03:08→07:59)
--- NOTE | 2023-05-01 05:22 | PCM.NOTE ---
Date and Time: 05/01/23517 Subjective Assessment: Mr. Torres is a 53 year old male, patient of Dr. Suarez, with a pmhx of HTN, hypothyroidism, COPD, OA, GERD, anxiety/depression, melanoma, NHL(7 years ago), Bladder/prostate cancer( s/p resection/prostatectomy 04/01) with permanent urostomy who presented to ED 04/29/23 with complaints of generalized body aches, lethargy, SOB, dry cough, diarrhea, headache, and fever (TMAX 100.8) admitted for UTI, currently being treated with Rocephin. Urine culture growing gram- organism. OBJECTIVE DATA Vital Signs: Vital Signs - 24 hr Temp Pulse Resp BP Pulse Ox 05/01/23 04:51 166/96 05/01/23 04:00 97.3 F 68 20 169/104 94 L 04/30/23 23:40 97.7 F 79 20 156/84 95 04/30/23 19:50 97.8 F 76 19 125/83 96 04/30/23 19:14 16 94 L 04/30/23 15:40 97.5 F 71 16 140/86 94 L 04/30/23 11:15 97.7 F 69 16 130/80 93 L 04/30/23 06:54 97.9 F 56 L 16 148/90 94 L 04/30/23 06:25 64 18 95 Pain Assessment - Last Documented Pain Intensity 8 Pain Scale Used 0-10 Pain Scale Intake and Output: Intake & Output 04/28/23 04/29/23 04/30/23 05/01/23 11:59 11:59 11:59 11:59 Intake Total 2591 4985 Output Total 600 2350 Balance 1990 2634 Weight 102.8 kg 97.3 kg Lab Results: Lab Results-Last 24 Hours 04/30/23 04/30/23 04/30/23 Range/Units 04:42 04:42 04:42 WBC 8.3 (4.0-10.5) x10^3/uL RBC 4.40 (4.1-5.6) x10^6/uL Hgb 13.5 (12.5-18.0) g/dL Hct 40.1 L (42-50) % MCV 91.1 (78-100) fL MCH 30.7 (26-32) pg MCHC 33.7 (32-36) g/dL RDW 13.2 (11.5-14.0) % Plt Count 224 (150-450) x10^3/uL MPV 8.9 (7.5-11.0) fL Gran % 69.8 H (36.0-66.0) % Immature Gran % (Auto) 0.5 H (0.00-0.4) % Nucleat RBC Rel Count 0.0 (0.00-0.1) % Eos # (Auto) 0.18 (0-0.5) x10^3/uL Immature Gran # (Auto) 0.04 H (0.00-0.03) x10^3u/L Absolute Lymphs (auto) 0.86 L (1.0-4.6) x10^3/uL Absolute Monos (auto) 1.36 H (0.0-1.3) x10^3/uL Absolute Nucleated RBC 0.00 (0.00-0.01) x10^3u/L Lymphocytes % 10.4 L (24.0-44.0) % Monocytes % 16.5 H (0.0-12.0) % Eosinophils % 2.2 (0.00-5.0) % Basophils % 0.6 (0.0-0.4) % Absolute Granulocytes 5.76 (1.4-6.9) x10^3/uL Basophils # 0.05 (0-0.4) x10^3/uL Sodium 133 L (137-145) mmol/L Potassium 3.9 (3.5-5.1) mmol/L Chloride 108 H (98-107) mmol/L Carbon Dioxide 18 L (22-30) mmol/L Anion Gap 10.7 (5-15) MEQ/L BUN 10 (9-20) mg/dL Creatinine 0.91 (0.66-1.25) mg/dL Estimated GFR > 60.0 ML/MIN Glucose 95 (74-106) mg/dL Calcium 7.7 L (8.4-10.2) mg/dL Magnesium 1.9 (1.6-2.3) mg/dL Total Bilirubin 0.30 (0.2-1.3) mg/dL AST 24 (17-59) U/L ALT 21 (0-50) U/L Alkaline Phosphatase 60 (38-126) U/L Serum Total Protein 6.0 L (6.3-8.2) g/dL Albumin 3.2 L (3.5-5.0) g/dL Radiology Exams: Radiology Procedures Category Date Time Status CHEST 1 VIEW (PORTABLE) Stat Exams 04/29/23 10:46 Completed Assessment/Plan (1) UTI (urinary tract infection) Current Visit: Yes Status: Acute Assessment & Plan: -Recent UTI in 01/31 with pseudomonas -Possible UTI, UA suggestive of infection. Urine CX pending. Will start Ceftriaxone 1g Q24H empirically. Will monitor closely. 04/30: -Gram - organism on culture, will continue with rocephin for now, follow culture Code(s): N39.0 - URINARY TRACT INFECTION, SITE NOT SPECIFIED (2) Lactic acidosis Current Visit: Yes Status: Acute Assessment & Plan: -Most likely secondary to UTI, Patient received 1L fluid bolus in ER, will heriberto nue to trend -Blood cultures/urine cuture pending -Procal elevated 04/30: -LA now wnl Code(s): E87.20 - ACIDOSIS, UNSPECIFIED (3) Orthostatic hypotension Current Visit: Yes Status: Acute Assessment & Plan: -Most likely secondary to hypovolemia, improved with IVF bolus -repeat orthostatic vitals in the morning -Monitor BP closely 05/01: -Repeat orthos normal Code(s): I95.1 - ORTHOSTATIC HYPOTENSION (4) Hypokalemia Current Visit: Yes Status: Acute Assessment & Plan: -Replenished in ER with 40meq, will continue potassium protocol, with labs q4h, replenish as appropriate 04/30: -resolved Code(s): E87.6 - HYPOKALEMIA (5) Hyponatremia Current Visit: Yes Status: Acute Assessment & Plan: -mild, hyovolemic, most likely secondary to GI loss -Monitor renal/lytes closely -Continue IVF -TSH WNL 04/30: -improving, will continue above treatment Code(s): E87.1 - HYPO-OSMOLALITY AND HYPONATREMIA (6) Diarrhea Current Visit: Yes Status: Acute Assessment & Plan: -Greater than 4 episodes per day -Will order stools for cdiff, culture, O&P, giardia 04/30: -cdiff pending, no BM since admission Code(s): R19.7 - DIARRHEA, UNSPECIFIED (7) History of prostate cancer Current Visit: Yes Status: Acute Assessment & Plan: -S/p prostatectomy 04/01 Code(s): Z85.46 - PERSONAL HISTORY OF MALIGNANT NEOPLASM OF PROSTATE (8) History of bladder cancer Current Visit: Yes Status: Acute Assessment & Plan: -s/p resection w/ permanent urostomy 04/01 Code(s): Z85.51 - PERSONAL HISTORY OF MALIGNANT NEOPLASM OF BLADDER (9) History of non-Hodgkin's lymphoma Current Visit: Yes Status: Acute Assessment & Plan: -noted, adds complexity, follows with Dr. Pruett, not in treatment currently Code(s): Z85.72 - PERSONAL HISTORY OF NON-HODGKIN LYMPHOMAS (10) Hypertension Current Visit: Yes Status: Acute Assessment & Plan: -currently with hypotension, will hold bp meds for now 05/01: -will resume home meds as appropriate Code(s): I10 - ESSENTIAL (PRIMARY) HYPERTENSION (11) Hypothyroidism Current Visit: Yes Status: Acute Assessment & Plan: -continue home meds Code(s): E03.9 - HYPOTHYROIDISM, UNSPECIFIED (12) Acidosis, unspecified Current Visit: Yes Status: Acute Assessment & Plan: -Bicarb levels low, most likely secondary to GI loss, will add bicarb orally Code(s): E87.20 - ACIDOSIS, UNSPECIFIED (13) Genitourinary pain Current Visit: Yes Status: Acute Assessment & Plan: -at stoma site, will continue pain management with diluadid/ [place] Code(s): [id number] -
[2023-05-01 05:33] LABS: Absolute Neutrophil Ct (ANC) 4.49 x10^3/uL (1.4-6.9); BASOPHIL % 0.8 % (0.0-0.4); Basophil (Absolute #) 0.06 x10^3/uL (0-0.4); Eosinophil % 2.6 % (0.00-5.0); Eosinophil (Absolute #) 0.19 x10^3/uL (0-0.5); Hematocrit 40.2 % (42-50); Hemoglobin 12.9 g/dL (12.5-18.0); IMMATURE GRAN # 0.03 x10^3u/L (0.00-0.03); IMMATURE GRAN % 0.4 % (0.00-0.4); Lymphocyte (Absolute #) 1.37 x10^3/uL (1.0-4.6); Mean Cell Volume 93.7 fL (78-100); Mean Corpuscular Hemoglobin 30.1 pg (26-32); Mean Corpuscular Hgb Concent. 32.1 g/dL (32-36); Mean Platelet Volume 9.1 fL (7.5-11.0); Monocyte (Absolute #) 1.06 x10^3/uL (0.0-1.3); Monocytes % 14.7 % (0.0-12.0); Neutrophil % 62.5 % (36.0-66.0); Platelet Count 256 x10^3/uL (150-450); Red Blood Count 4.29 x10^6/uL (4.1-5.6); White Blood Count 7.2 x10^3/uL (4.0-10.5)
[2023-05-01 05:46] LABS: ALBUMIN 3.2 g/dL (3.5-5.0); ALKALINE PHOSPHATASE 58 U/L (38-126); ANION GAP 9.5 MEQ/L (5-15); BLOOD UREA NITROGEN 8 mg/dL (9-20); CHLORIDE 109 mmol/L (98-107); Calcium 7.8 mg/dL (8.4-10.2); Carbon Dioxide 22 mmol/L (22-30); Creatinine 1 0.76 mg/dL (0.66-1.25); EST GLOMERULAR FILTRATION RATE > 60.0 ML/MIN; Glucose 82 mg/dL (74-106); Potassium 3.6 mmol/L (3.5-5.1); SGOT/AST 19 U/L (17-59); SGPT/ALT 20 U/L (0-50); SODIUM 137 mmol/L (137-145); Total Protein 5.9 g/dL (6.3-8.2)
[2023-05-01] MEDS: Sodium Chloride 0.9% 1000 ML 1,000 ML IV SCH (06:48)
[2023-05-01 08:24] VITALS: TEMP 97.1
[2023-05-01] MEDS: ROCEPHIN 1 Gm-D5w 50 ml Bag** 1 G/50 ML IVPB IV SCH (08:50)
[2023-05-01] MEDS: SYNTHROID 25 MCG PO SCH (08:51)
[2023-05-01] MEDS: Effexor XR 75 MG PO SCH (08:51)
[2023-05-01] MEDS: SYNTHROID 112 MCG PO SCH (08:52)
[2023-05-01] MEDS ORDERED: Zestril 20 MG PO SCH (10:00)
[2023-05-01] MEDS ORDERED: Zestril 10 MG PO SCH (10:00)
[2023-05-01] MEDS ORDERED: COREG 12.5 MG PO SCH (10:00)
--- NOTE | 2023-05-01 11:09 | PCM.DS ---
Discharge Summary Date of Admission: 04/29/23 15:21 Date of Discharge: 05/01/23 Admitting Physician: NASRIN THOMPSON MD Primary Care Provider: JULITO CASH Allergies Allergies morphine Allergy (Intermediate, Verified 04/14/23 14:55) [facility] Summary - Hospital Course Hospital Course: Mr. Torres is a 53 year old male, patient of Dr. Cash, with a pmhx of HTN, hypothyroidism, COPD, OA, GERD, anxiety/depression, melanoma, NHL(7 years ago), Bladder/prostate cancer( s/p resection/prostatectomy 04/01) with permanent urostomy who presented to ED 04/29/23 with complaints of generalized body aches, lethargy, SOB, dry cough, diarrhea, headache, and fever (TMAX 100.8) admitted for UTI, currently treatment with Rocephin while IP. Urine culture growing Ecoli. No longer with sob and cough. Pain around stoma has improved. Patient has remained afebrile, no episodes of diarrhea while hospitalized. No longer hypotensive, orthos normal. Patient stable and ready for discharge. Will d/c with resumption of home medication and add cefdinir for UTI. Advised follow up with PCP. New Diagnosis: UTI New Medications: Cefdinir Follow Up: PCP Latest Assessment & Plan (1) UTI (urinary tract infection) Current Visit: Yes Status: Acute Assessment & Plan: -Recent UTI in 01/31 with pseudomonas -Possible UTI, UA suggestive of infection. Urine CX pending. Will start Ceftriaxone 1g Q24H empirically. Will monitor closely. 04/30: -Gram - organism on culture, will continue with rocephin for now, follow culture Code(s): N39.0 - URINARY TRACT INFECTION, SITE NOT SPECIFIED (2) Lactic acidosis Current Visit: Yes Status: Acute Assessment & Plan: -Most likely secondary to UTI, Patient received 1L fluid bolus in ER, will continue to trend -Blood cultures/urine cuture pending -Procal elevated 04/30: -LA now wnl Code(s): E87.20 - ACIDOSIS, UNSPECIFIED (3) Orthostatic hypotension Current Visit: Yes Status: Acute Assessment & Plan: -Most likely secondary to hypovolemia, improved with IVF bolus -repeat orthostatic vitals in the morning -Monitor BP closely 05/01: -Repeat orthos normal 05/02: -resolved Code(s): I95.1 - ORTHOSTATIC HYPOTENSION (4) Hypokalemia Current Visit: Yes Status: Acute Assessment & Plan: -Replenished in ER with 40meq, will continue potassium protocol, with labs q4h, replenish as appropriate 04/30: -resolved Code(s): E87.6 - HYPOKALEMIA (5) Hyponatremia Current Visit: Yes Status: Acute Assessment & Plan: -mild, hyovolemic, most likely secondary to GI loss -Monitor renal/lytes closely -Continue IVF -TSH WNL 04/30: -improving, will continue above treatment 05/01: -resolved Code(s): E87.1 - HYPO-OSMOLALITY AND HYPONATREMIA (6) Diarrhea Current Visit: Yes Status: Acute Assessment & Plan: -Greater than 4 episodes per day -Will order stools for cdiff, culture, O&P, giardia 04/30: -cdiff pending, no BM since admission 05/01: -resolved Code(s): R19.7 - DIARRHEA, UNSPECIFIED (7) History of prostate cancer Current Visit: Yes Status: Acute Assessment & Plan: -S/p prostatectomy 04/01 Code(s): Z85.46 - PERSONAL HISTORY OF MALIGNANT NEOPLASM OF PROSTATE (8) History of bladder cancer Current Visit: Yes Status: Acute Assessment & Plan: -s/p resection w/ permanent urostomy 04/01 Code(s): Z85.51 - PERSONAL HISTORY OF MALIGNANT NEOPLASM OF BLADDER (9) History of non-Hodgkin's lymphoma Current Visit: Yes Status: Acute Assessment & Plan: -noted, adds complexity, follows with Dr. Pruett, not in treatment currently Code(s): Z85.72 - PERSONAL HISTORY OF NON-HODGKIN LYMPHOMAS (10) Hypertension Current Visit: Yes Status: Acute Assessment & Plan: -currently with hypotension, will hold bp meds for now 05/01: -will resume home meds as appropriate Code(s): I10 - ESSENTIAL (PRIMARY) HYPERTENSION (11) Hypothyroidism Current Visit: Yes Status: Acute Assessment & Plan: -continue home meds Code(s): E03.9 - HYPOTHYROIDISM, UNSPECIFIED (12) Acidosis, unspecified Current Visit: Yes Status: Acute Assessment & Plan: -Bicarb levels low, most likely secondary to GI loss, will add bicarb orally Code(s): E87.20 - ACIDOSIS, UNSPECIFIED (13) Genitourinary pain Current Visit: Yes Status: Acute Assessment & Plan: -at stoma site, will continue pain management with diluadid/ [place] I spent 35 minutes [id number] with the patient on the day of discharge performing discharge exam, discussing hospital stay and discharge instructions with patient and caregivers, preparation of discharge records, prescriptions & referral forms and addressing any questions/concerns the patient had as documented above. - Vitals & Intake/Output Vital Signs: Vital Signs Temperature 97.1 F 05/01/23 08:00 Pulse Rate 74 05/01/23 08:00 Respiratory Rate 17 05/01/23 08:00 Blood Pressure 189/110 05/01/23 08:00 O2 Sat by Pulse Oximetry 95 05/01/23 08:00 Intake & Output: Intake & Output 04/28/23 04/29/23 04/30/23 05/01/23 11:59 11:59 11:59 11:59 Intake Total 2591 5105 Output Total 600 2350 Balance 1990 2754 Weight 102.8 kg 97.3 kg - Lab Result Diagrams: 05/01/23 04:00 05/01/23 04:54 Lab Results-Last 24 Hrs: Lab Results-Last 24 Hours 05/01/23 05/01/23 05/01/23 Range/Units 04:00 04:54 05:27 WBC 7.2 (4.0-10.5) x10^3/uL RBC 4.29 (4.1-5.6) x10^6/uL Hgb 12.9 (12.5-18.0) g/dL Hct 40.2 L (42-50) % MCV 93.7 (78-100) fL MCH 30.1 (26-32) pg MCHC 32.1 (32-36) g/dL RDW 13.0 (11.5-14.0) % Plt Count 256 (150-450) x10^3/uL MPV 9.1 (7.5-11.0) fL Gran % 62.5 (36.0-66.0) % Immature Gran % (Auto) 0.4 (0.00-0.4) % Nucleat RBC Rel Count 0.0 (0.00-0.1) % Eos # (Auto) 0.19 (0-0.5) x10^3/uL Immature Gran # (Auto) 0.03 (0.00-0.03) x10^3u/L Absolute Lymphs (auto) 1.37 (1.0-4.6) x10^3/uL Absolute Monos (auto) 1.06 (0.0-1.3) x10^3/uL Absolute Nucleated RBC 0.00 (0.00-0.01) x10^3u/L Lymphocytes % 19.0 L (24.0-44.0) % Monocytes % 14.7 H (0.0-12.0) % Eosinophils % 2.6 (0.00-5.0) % Basophils % 0.8 (0.0-0.4) % Absolute Granulocytes 4.49 (1.4-6.9) x10^3/uL Basophils # 0.06 (0-0.4) x10^3/uL Sodium 137 (137-145) mmol/L Potassium 3.6 (3.5-5.1) mmol/L Chloride 109 H (98-107) mmol/L Carbon Dioxide 22 (22-30) mmol/L Anion Gap 9.5 (5-15) MEQ/L BUN 8 L (9-20) mg/dL Creatinine 0.76 (0.66-1.25) mg/dL Estimated GFR > 60.0 ML/MIN Glucose 82 (74-106) mg/dL Lactic Acid 1.0 (0.4-2.0) Calcium 7.8 L (8.4-10.2) mg/dL Total Bilirubin 0.20 (0.2-1.3) mg/dL AST 19 (17-59) U/L ALT 20 (0-50) U/L Alkaline Phosphatase 58 (38-126) U/L Serum Total Protein 5.9 L (6.3-8.2) g/dL Albumin 3.2 L (3.5-5.0) g/dL Micro Results-Entire Visit: Microbiology 04/29/23 12:01 Urine Culture - Final Clean Catch Midstream Escherichia Coli 04/29/23 11:20 Blood Culture - Preliminary Blood 04/29/23 11:22 Blood Culture - Preliminary Blood 04/29/23 Unknown Stool Culture Result 1 - Final Stool Not Reportable Stool Culture Result 2 - Final Not Reportable Stool Culture Result 3 - Final Not Reportable Stool Culture Result 4 - Final Not Reportable Stool Culture Organism Suscept - Final Not Reportable Campylobacter Result 1 - Final Not Reportable Campylobacter Result 2 - Final Not Reportable Campylobactor Result 3 - Final Not Reportable Campylobacter Result 4 - Final Not Reportable Campylobactor Susceptibility - Final Not Reportable - Radiology Exams Ordered Rad Exams-Entire Visit: Radiology Procedures Category Date Time Status CHEST 1 VIEW (PORTABLE) Stat Exams 04/29/23 10:46 Completed - Procedures and Test Procedures and Tests throughout Hospitalization: Therapy Orders & Screens 04/29/23 15:22 Respiratory Therapy Consult ONCE Comment: Reason For Exam: 04/29/23 15:55 Respiratory Therapy Assessment DAILY Comment: Discharge Exam General Appearance: no apparent distress Neurologic Exam: alert, oriented x 3, cooperative Eye Exam: PERRL Ears, Nose, Throat Exam: normal ENT inspection Neck Exam: normal inspection Respiratory Exam: normal breath sounds, lungs clear Cardiovascular Exam: regular rate/rhythm, normal heart sounds Gastrointestinal/Abdomen Exam: soft, normal bowel sounds, other (urostomy to right abdomen, normal inspection) Male Genitalia Exam: deferred Rectal Exam: deferred Back Exam: normal inspection Extremity Exam: normal inspection Skin Exam: normal color Final Diagnosis/Problem List - Final Discharge Diagnosis/Problem (1) UTI (urinary tract infection) Current Visit: Yes Status: Acute Code(s): N39.0 - URINARY TRACT INFECTION, SITE NOT SPECIFIED (2) Lactic acidosis Current Visit: Yes Status: Acute Code(s): E87.20 - ACIDOSIS, UNSPECIFIED (3) Orthostatic hypotension Current Visit: Yes Status: Acute Code(s): I95.1 - ORTHOSTATIC HYPOTENSION (4) Hypokalemia Current Visit: Yes Status: Acute Code(s): E87.6 - HYPOKALEMIA (5) Hyponatremia Current Visit: Yes Status: Acute Code(s): E87.1 - HYPO-OSMOLALITY AND HYPONATREMIA (6) Diarrhea Current Visit: Yes Status: Acute Code(s): R19.7 - DIARRHEA, UNSPECIFIED (7) History of prostate cancer Current Visit: Yes Status: Acute Code(s): Z85.46 - PERSONAL HISTORY OF MALIGNANT NEOPLASM OF PROSTATE (8) History of bladder cancer Current Visit: Yes Status: Acute Code(s): Z85.51 - PERSONAL HISTORY OF MALIGNANT NEOPLASM OF BLADDER (9) History of non-Hodgkin's lymphoma Current Visit: Yes Status: Acute Code(s): Z85.72 - PERSONAL HISTORY OF NON- HODGKIN LYMPHOMAS (10) Hypertension Current Visit: Yes Status: Acute Code(s): I10 - ESSENTIAL (PRIMARY) HYPERTENSION (11) Hypothyroidism Current Visit: Yes Status: Acute Code(s): E03.9 - HYPOTHYROIDISM, UNSPECIFIED (12) Acidosis, unspecified Current Visit: Yes Status: Acute Code(s): E87.20 - ACIDOSIS, UNSPECIFIED (13) Genitourinary pain Current Visit: Yes Status: Acute Code(s): IKM8825 - - Discharge Prescriptions: New Cefdinir 300 mg PO BID 7 Days #14 cap Hydrocodone/Acetaminophen [Hydrocodone-Acetamin 10-325 mg] 1 tablet PO Q4H PRN PRN 3 Days #18 tablet MDD 6 tabs PRN Reason: Pain Continue Venlafaxine HCl [Effexor] 150 mg PO DAILY Levothyroxine Sodium [Synthroid] 137 mcg PO DAILY Lisinopril 10 mg [Zestril 10 MG] 20 mg PO DAILY Carvedilol 12.5 mg [Coreg 12.5 mg] 12.5 mg PO BID Follow up with: JULITO CASH MD [Primary Care Provider] - 05/07/23 11:00 am
[2023-05-01 12:58] VITALS: BP 185/89; PULSE 69; RESP 18; O2SAT 96
== END 2023-05-01 10:55 | disposition home or self-care (01) ==
LOC: ED 10:24 → MED SURG 15:21
PROVIDERS: ADMIT Internal Medicine; ATTEND Internal Medicine
DX: N39.0 Urinary tract infection, site not specified (principal); E87.20 Acidosis, unspecified; I95.1 Orthostatic hypotension; E87.6 Hypokalemia; E87.1 Hypo-osmolality and hyponatremia; I10 Essential (primary) hypertension; R19.7 Diarrhea, unspecified; Z11.59 Encounter for screening for other viral diseases; Z85.46 Personal history of malignant neoplasm of prostate; Z85.51 Personal history of malignant neoplasm of bladder; R51.9 Headache, unspecified; Z85.72 Personal history of non-Hodgkin lymphomas; Z97.8 Presence of other specified devices; Z86.711 Personal history of pulmonary embolism; Z86.73 Personal history of transient ischemic attack (TIA), and cerebral infarction without residual deficits
CPT/HCPCS: 0241U; 36000; 36415; 71045; 80053; 81001; 83605; 83690; 83735; 84132; 84145; 84443; 84484; 85025; 87040; 87077; 87086; 87186; 87651; 94760; 96360; 96374; 99285; 93268; J0456; J0696; J1170; J1885; J2405; Q3014; A9270-GY; G0378